=== PATIENT | female | born 1935 | race Caucasian/White ===

== ENCOUNTER 2016-12-10 17:14 | Inpatient (IN) ==
[2016-12-10] MEDS ORDERED: *HR* Heparin 5,000 UNIT/ML VIAL IVP PRN ×2 (17:37)
[2016-12-10] MEDS ORDERED: Nitroglycerin 0.4 MG TAB.SUBL SL ONE (17:37)
[2016-12-10] MEDS ORDERED: Aspirin 81 MG TAB.CHEW PO ONE (17:37)
[2016-12-10] MEDS ORDERED: *HR* Heparin 5,000 UNIT/ML VIAL IVP ONE (17:37)
[2016-12-10] MEDS ORDERED: *HR* Ticagrelor 90 MG TABLET PO ONE (17:38)
--- NOTE | 2016-12-10 17:41 | Emergency Department Note ---
Disposition Clinical Impression: Chest pain Qualifiers: Chest pain type: unspecified Qualified Code(s): R07.9 - Chest pain, unspecified ST elevation myocardial infarction (STEMI) Qualifiers: Involved coronary artery: unspecified coronary artery Qualified Code(s): I21.3 - ST elevation (STEMI) myocardial infarction of unspecified site Dyspnea Qualifiers: Dyspnea type: unspecified Qualified Code(s): R06.00 - Dyspnea, unspecified Disposition: Admitted As Inpatient Condition: Fair Time of Disposition: 18:01 Chest Pain HPI - General Chief Complaint: ED Chest Pain Stated Complaint: CP/SOB Time Seen by Provider: 12/10/16 17:31 Source: patient, family Limitations: no limitations Vital Signs Reviewed: Yes Nursing Notes Reviewed: Yes - History of Present Illness HPI Narrative: 81-year-old female history of hypertension, hyperlipidemia presents the ED with chest pain and shortness of breath. Symptoms occurred at noon after a meal. Describes as a sharp pressure and tightness. She also felt later heart was working harder and thumping. She had associated shortness of breath denies any diaphoresis nausea or vomiting. Denies a history of coronary arterial disease. Last heart catheterization in 2011 she reports. Her pattern grader supervisor is Dr. Stockton. She currently denies any pain but reports some tenderness tightness in her chest. She received 81 mg aspirin, a full dose aspirin ordered. EKG shows concerns of ST elevation in the inferior leads that appears above baseline. Repeat EKG showed similar findings, no dynamic changes. Will consult with brim buster. Severity scale (1-10): 4 - Related Data Home Medications Medication Instructions Recorded Confirmed Aspirin [Adult Low Dose Aspirin EC] 162 mg PO DAILY 06/03/15 06/03/15 Estrogens, Conjugated [Premarin] 0.3 mg PO DAILY 06/03/15 06/03/15 Ezetimibe/Simvastatin [Vytorin 1 tab PO DAILY 06/03/15 06/03/15 10-40 mg Tablet] LORazepam [Ativan] 0.5 - 1 mg PO DAILY 06/03/15 06/03/15 Levothyroxine [Synthroid] 100 mcg PO DAILY 06/03/15 06/03/15 Losartan/Hydrochlorothiazide 1 tab PO DAILY 06/03/15 06/03/15 [Hyzaar 100-25 Tablet] Metoprolol XL (24 HR) Succ [Toprol 25 mg PO DAILY 06/03/15 06/03/15 Xl] carBAMazepine [Tegretol] 100 mg PO DAILY 06/03/15 06/03/15 Previous Rx's Medication Instructions Recorded Loperamide [Imodium] 2 mg PO TIDAC #90 capsule 06/04/15 Simethicone [Gas Relief] 125 mg PO QID PRN #90 tab.chew 06/04/15 Ciprofloxacin [Cipro] 500 mg PO BID #14 tablet 06/05/15 Clindamycin [Cleocin] 150 mg PO Q6HR #28 capsule 06/05/15 Ondansetron ODT [Zofran ODT] 4 mg SL Q6HR PRN #20 tab.rapdis 06/05/15 Simethicone [Gas-X] 80 mg PO TIDWM tab.chew 06/05/15 Allergies Allergy/AdvReac Type Severity Reaction Status Date / Time latex Allergy Blister Verified 06/03/15 21:09 venom-honey bee Allergy Hives Verified 12/28/14 14:53 [bee venom (honey bee)] All systems ED: reviewed and negative except as stated. Review of Systems: As Per HPI Constitutional: Denies: fever, chills Cardiovascular: Reports: chest pain, palpitations. Denies: dyspnea on exertion Respiratory: Reports: dyspnea. Denies: cough Gastrointestinal: Denies: abdominal pain, nausea, vomiting Genitourinary: Denies: urgency, dysuria Musculoskeletal: Denies: back pain, neck pain Integumentary: Denies: rash, abrasion, lesions Neurological: Denies: headache Chest Pain PMH - Past Medical History Medical history: Reports: CHF, coronary artery disease, hyperlipidemia, hypertension, other Surgical history: Reports: hysterectomy Psychiatric history: Reports: no psych history CHIMNEY BUILDER history: Reports: no CHIMNEY BUILDER history - Social History Smoking Status: Never smoker Alcohol use: Reports: none Drug use: Reports: none Physical Exam - General Limitations: no limitations General appearance: alert, in no apparent distress - Head Head exam: atraumatic, normocephalic, normal inspection - Eye Eye exam: Present: normal appearance, PERRL, EOMI - ENT ENT exam: normal exam, normal oropharynx, mucous membranes moist - Neck Neck exam: Present: normal inspection, full ROM, trachea midline - Chest Chest inspection: Present: normal inspection, symmetric chest wall rise. Absent : tenderness, rash - Respiratory Respiratory exam: Present: normal lung sounds bilaterally. Absent: respiratory distress, wheezes - Cardiovascular Cardiovascular exam: Present: regular rate, normal rhythm, normal heart sounds. Absent: systolic murmur, diastolic murmur - Abdominal Exam Abdominal exam: Present: soft, Non-Tender, normal bowel sounds. Absent: tenderness, distention, guarding, rebound, rigidity - Extremities Exam Extremities exam: Present: normal inspection, full ROM, normal capillary refill. Absent: tenderness, pedal edema - Neurological Exam Neurological exam: Present: alert, oriented X3 - Skin Skin exam: Present: warm, dry, intact, normal color Course - Reevaluation(s) Reevaluation #1: EKG was concerning. EKG was brought evaluated by the brim buster Dr. Jacob. Recommend to workup as STEMI but hold off on calling. Workup initiated. Nitro given. She had some relief blood pressure did drop slightly. Normal saline ordered. She continues reports some tightness in the left chest wall. She is also complaining of subjective shortness of breath. She otherwise appears in no acute distress. Dr. Jacob pattern grader supervisor came to evaluate the patient down in the merge department and recommended we initiated STEMI alert due to questionable EKG findings. Patient has been sent been taken down to [facility]. - Consultations Consultation #1: Spoke with Dr. Jacob, reports questionable EKG. Recommend to repeat EKG after medications of asa, brilinta, nitro, and heparin. Time: 17:30 Consultation #2: Dr. Jacob arrives to the ED, recommends to call as STEMI as she is now experiencing symptoms. Time: 17:46 Vital Signs Temperature 98.0 F 12/10/16 17:19 Pulse Rate 80 12/10/16 17:19 Respiratory Rate 20 12/10/16 17:19 Blood Pressure 125/79 12/10/16 17:19 O2 Sat by Pulse Oximetry 93 12/10/16 17:19 Temperature 98.0 F 12/10/16 17:19 Pulse Rate 79 12/10/16 17:50 Respiratory Rate 18 12/10/16 17:58 Blood Pressure 106/88 12/10/16 17:58 O2 Sat by Pulse Oximetry 91 12/10/16 17:50 Oxygen Delivery Oxygen Delivery Nasal Cannula Chest Pain - Medical Records Medical records reviewed: Yes I reviewed the patient's medical records. - Lab Data Lab results reviewed: Yes I reviewed the patient's lab results. Result diagrams: 12/10/16 17:28 12/10/16 17:28 Lab Results 12/10/16 12/10/16 12/10/16 Range/Units 17:28 17:28 17:28 WBC 11.3 H (4.3-11.1) K/mcL RBC 4.75 (3.82-4.97) M/mcL Hgb 13.7 (11.5-15.4) g/dL Hct 41.6 (35.3-44.9) % MCV 87.6 (83.0-100.0) fL MCH 28.8 (28.0-33.3) pg MCHC 32.9 (31.6-35.5) g/dL RDW 13.7 (11.5-14.5) % Plt Count 207 (140-400) K/mcL MPV 11.1 (9.4-12.4) fL Immature Gran % 0.3 (0-4) % Seg Neutrophils % 74.9 % Lymphocytes % 14.2 % Monocytes % 8.9 % Eosinophils % 1.2 % Basophils % 0.5 % Neutrophils # 8.5 (1.6-8.9) K/mcL Lymphocytes # 1.6 (0.6-4.6) K/mcL Monocytes # 1.0 (0.0-1.3) K/mcL Eosinophils # 0.1 (0.0-0.6) K/mcL Basophils # 0.1 (0.0-0.2) K/mcL PT 10.9 (9.4-12.1) Seconds INR 1.0 APTT 29.3 (26.0-36.0) Seconds Sodium 139 (136-145) mEq/L Potassium 4.0 (3.5-4.5) mEq/L Chloride 103 (98-109) mEq/L Carbon Dioxide 29 (19-29) mEq/L BUN 20 (7-20) mg/dL Creatinine 1.05 (0.57-1.11) mg/dL Est GFR ( Amer) > 60 (> 60) Est GFR (Non-Af Amer) 51 L (> 60) BUN/Creatinine Ratio 19 (6-26) Glucose 105 H (70-99) mg/dL Calculated Osmolality 291 (280-300) Calcium 10.1 (8.6-10.8) mg/dL Troponin I (0-0.03) ng/mL 12/10/16 Range/Units 17:28 WBC (4.3-11.1) K/mcL RBC (3.82-4.97) M/mcL Hgb (11.5-15.4) g/dL Hct (35.3-44.9) % MCV (83.0-100.0) fL MCH (28.0-33.3) pg MCHC (31.6-35.5) g/dL RDW (11.5-14.5) % Plt Count (140-400) K/mcL MPV (9.4-12.4) fL Immature Gran % (0-4) % Seg Neutrophils % % Lymphocytes % % Monocytes % % Eosinophils % % Basophils % % Neutrophils # (1.6-8.9) K/mcL Lymphocytes # (0.6-4.6) K/mcL Monocytes # (0.0-1.3) K/mcL Eosinophils # (0.0-0.6) K/mcL Basophils # (0.0-0.2) K/mcL PT (9.4-12.1) Seconds INR APTT (26.0-36.0) Seconds Sodium (136-145) mEq/L Potassium (3.5-4.5) mEq/L Chloride (98-109) mEq/L Carbon Dioxide (19-29) mEq/L BUN (7-20) mg/dL Creatinine (0.57-1.11) mg/dL Est GFR ( Amer) (> 60) Est GFR (Non-Af Amer) (> 60) BUN/Creatinine Ratio (6-26) Glucose (70-99) mg/dL Calculated Osmolality (280-300) Calcium (8.6-10.8) mg/dL Troponin I 3.58 H* (0-0.03) ng/mL - EKG Data EKG attestation: Yes I reviewed and interpreted this EKG. EKG results narrative: EKG's were performed concerning for ST elevations in inferior leads as well as V3-V4. T wave inversion in lead 1 and ABL. Compared to old EKG performed 10/25 /2016 shows consistent findings of the T wave inversion however there is noticeable ST deviation in the inferior as well as septal leads. Cardiology was consulted and due to the concerning findings STEMI he was later called. Heart Score - Score History: Moderately Suspicious EKG: Non Specific repolarisation Disturbance Age: Greater than 65 Risk Factors: 1-2 risk factors
[2016-12-10] MEDS ORDERED: Heparin 25,000 UNIT/500 ML D5W 25,000 UNIT/500 ML MLS IVC SCH (17:45)
[2016-12-10] MEDS ORDERED: Verapamil 5 MG/2 ML VIAL ONE (17:47)
[2016-12-10] MEDS ORDERED: 0.9 % Sodium Chloride 1,000 ML ONE (17:47)
[2016-12-10] MEDS ORDERED: Heparin 1,000 UNITS/500 mL NS 500 ML ONE (17:47)
[2016-12-10 17:48] LABS: Basophils # 0.1 K/mcL (0.0-0.2); Basophils % 0.5 %; Eosinophils # 0.1 K/mcL (0.0-0.6); Eosinophils % 1.2 %; Hematocrit 41.6 % (35.3-44.9); Hemoglobin 13.7 g/dL (11.5-15.4); Immature Granulocytes % 0.3 % (0-4); Lymphocytes # 1.6 K/mcL (0.6-4.6); Lymphocytes % 14.2 %; Mean Corpuscular HGB Conc 32.9 g/dL (31.6-35.5); Mean Corpuscular Hemoglobin 28.8 pg (28.0-33.3); Mean Corpuscular Volume 87.6 fL (83.0-100.0); Mean Platelet Volume 11.1 fL (9.4-12.4); Monocytes % 8.9 %; Neutrophils # 8.5 K/mcL (1.6-8.9); Platelet Count 207 K/mcL (140-400); Red Blood Count 4.75 M/mcL (3.82-4.97); Red Cell Distribution Width 13.7 % (11.5-14.5); Segmented Neutrophils % 74.9 %
[2016-12-10] MEDS ORDERED: Nitroglycerin 1,000 MCG/10 ML VIAL IV ONE (17:48)
[2016-12-10] MEDS ORDERED: *HR* Heparin 10,000 UNIT/10 ML VIAL ONE (17:48)
[2016-12-10] MEDS ORDERED: 0.9 % Sodium Chloride 1,000 ML IVC ONE (17:53)
--- NOTE | 2016-12-10 17:55 | Emergency Department Note ---
START Narrative - START START: I examined this patient and my medical decision-making was reviewed with the Resident Physician. I agree with the documented findings, disposition and treatment plan as described except to the extent set forth below. Patient to ED with chest tightness. Patient is planning a tightness in the left side of her chest. No history of coronary disease catheterization done around 1999 with no interventions. Her patient started after lunch around noon. Short of breath with it as well. Also complained of palpitations. Exam shows her sitting up in bed in no acute distress. Her pain is not reproducible. Plan. Initial EKG was questionable for some inferior and septal elevations. We did repeat an EKG which appears unchanged. Was discussed with cardiology. He evaluated the patient and agrees EKG is questionable but we will proceed with STEMI and activate ear mold laboratory technician. Patient to Bra[facility] Specialist.
[2016-12-10 17:57] LABS: Prothrombin Time 10.9 Seconds (9.4-12.1)
[2016-12-10 17:59] LABS: Activated Partial Thrombo Time 29.3 Seconds (26.0-36.0)
[2016-12-10 18:02] LABS: BUN/Creatinine Ratio 19 (6-26); Blood Urea Nitrogen 20 mg/dL (7-20); Calcium 10.1 mg/dL (8.6-10.8); Carbon Dioxide 29 mEq/L (19-29); Chloride 103 mEq/L (98-109); Glucose 105 mg/dL (70-99); Osmolality,Calculated 291 (280-300); Sodium 139 mEq/L (136-145); eGFR For African Americans > 60 (> 60); eGFR For Non-African Americans 51 (> 60)
--- NOTE | 2016-12-10 18:04 | Pre-Sedation Evaluation ---
Pre-sedation evaluation - Pre-sedation checklist Date of procedure: 12/10/16 Procedure: [facility] Recent Vitals: Last Vital Signs Temp 98.0 F 12/10/16 17:19 Pulse 79 12/10/16 17:50 Resp 18 12/10/16 17:58 BP 106/88 12/10/16 17:58 Pulse Ox 91 12/10/16 17:50 H&P (including ROS) documented in medical record: Yes Previous reaction to sedatives/anesthetics: No Dietary Status: NPO after Midnight Airway Assessment: Patient can open mouth completely, TMJ function normal Dentition: No loose teeth or bridges ASA Classification *see protocol: CLASS II-Mild systemic disease, E-EMERGENCY- Add to any of the above to indicate emergent Plan of Care: Pt appropriate candidate for procedure/moderate/conscious sedation , Risks/benefits of procedure/sedation discussed w/ patient/family
--- NOTE | 2016-12-10 18:06 | Cardiology History & Physical ---
Date of Encounter: 12/10/16 Time of Encounter: 18:00 Assessment and Plan (1) Acute MS Status: Acute Ongoing symptoms with abnormal EKG concerning for lateral current of injury. Emergent LHC. A/R/B discussed with her including 1% chance of /CVA/CABG/ bleeding. She is aware and wishes to proceed. Aspirin, brilinta, heparin given. EF assessment to be completed. The assessment and plan as outlined above was discussed with the patient and/or family members who expressed understanding and agreement. All questions were answered. Qualifiers: Myocardial infarction ST status: non-ST elevation myocardial infarction Qualified Code(s): I21.4 - Non-ST elevation (NSTEMI) myocardial infarction History of Present Illness Chief complaint: chest pain HPI: Ms. Shipley is a 81 year old female with HTN but no previous cardiac history ([facility] 1999 - no intervention) presents with sudden onset severe chest pain radiating throughout chest wall associated with mild dyspnea. It was minimally improved with medical therapy in the ED with residual chest tightness. EKG was borderline abnormal for lateral MS but interpretation was complicated with LVH strain pattern. Past Med Surg Social Fam HX - Past Medical History Medical history: CHF, coronary artery disease, hyperlipidemia, hypertension, other Psychiatric history: no psych history - Past Surgical History Surgical History: hysterectomy - Social History Smoking Status: Never smoker Smokeless Tobacco Status: No Alcohol use: none Drug use: none - Family History Mother Hx Family GI Disorders: Yes Medications and Allergies Aspirin [Adult Low Dose Aspirin EC] 162 mg PO DAILY 06/03/15 [History] Estrogens, Conjugated [Premarin] 0.3 mg PO DAILY 06/03/15 [History] Ezetimibe/Simvastatin [Vytorin 10-40 mg Tablet] 1 tab PO DAILY 06/03/15 [History ] LORazepam [Ativan] 0.5 - 1 mg PO DAILY 06/03/15 [History] Levothyroxine [Synthroid] 100 mcg PO DAILY 06/03/15 [History] Losartan/Hydrochlorothiazide [Hyzaar 100-25 Tablet] 1 tab PO DAILY 06/03/15 [ History] Metoprolol XL (24 HR) Succ [Toprol Xl] 25 mg PO DAILY 06/03/15 [History] carBAMazepine [Tegretol] 100 mg PO DAILY 06/03/15 [History] Loperamide [Imodium] 2 mg PO TIDAC #90 capsule 06/04/15 [Rx] Simethicone [Gas Relief] 125 mg PO QID PRN #90 tab.chew 06/04/15 [Rx] Ciprofloxacin [Cipro] 500 mg PO BID #14 tablet 06/05/15 [Rx] Clindamycin [Cleocin] 150 mg PO Q6HR #28 capsule 06/05/15 [Rx] Ondansetron ODT [Zofran ODT] 4 mg SL Q6HR PRN #20 tab.rapdis 06/05/15 [Rx] Simethicone [Gas-X] 80 mg PO TIDWM tab.chew 06/05/15 [Rx] Allergies latex Allergy (Verified 06/03/15 21:09) Blister venom-honey bee [bee venom (honey bee)] Allergy (Verified 12/28/14 14:53) Hives All Systems Review: A 10-system review of systems was performed and is negative for pertinent findings except as documented above in the HPI. Physical Examination Vital Signs, Last 4 Hours Temp Pulse Resp BP Pulse Ox 12/10/16 17:58 18 106/88 12/10/16 17:50 79 18 94/61 91 12/10/16 17:19 98.0 F 80 20 125/79 93 General: Conversant, Other (mild distress) HEENT: Atraumatic Neck: No JVD Cardiac: Reg Rate and Rhythm Lungs: Normal Breath Sounds Neuro: Alert and responsive Abdomen: Soft Skin: No rashes noted on visualized skin Musculoskeletal: No Chest Wall Tenderness Extremities: No Edema Results 12/10/16 17:28 12/10/16 17:28 Lab Results 12/10/16 12/10/16 12/10/16 17:28 17:28 17:28 WBC 11.3 H Hgb 13.7 Hct 41.6 Plt Count 207 INR 1.0 APTT 29.3 Sodium 139 Potassium 4.0 Chloride 103 Carbon Dioxide 29 BUN 20 Creatinine 1.05 Glucose 105 H Calcium 10.1 - EKG Interpretation EKG results cardiology: sinus rhythm (LVH with strain borderline inferolateral current of injury)
[2016-12-10] MEDS ORDERED: *HR* Midazolam HCl 2 MG/2 ML VIAL ONE (18:13)
[2016-12-10] MEDS ORDERED: *HR* FentaNYL (PF) 100 MCG/2 ML VIAL ONE (18:13)
[2016-12-10] MEDS ORDERED: *HR* Atropine Sulfate 1 MG/10 ML SYRINGE ONE ×2 (18:29→22:27)
[2016-12-10] MEDS ORDERED: Ondansetron 4 MG/2 ML VIAL IVP PRN (18:36)
[2016-12-10] MEDS ORDERED: *HR* Morphine 2 MG/ML SYRINGE IVP PRN (18:36)
[2016-12-10] MEDS ORDERED: Furosemide 40 MG/4 ML VIAL ONE (18:58)
--- NOTE | 2016-12-10 19:25 | Invasive Diagnostic Lab Proc ---
Name: Kimberly Shipley Date of Study: 12/10/2016 Date: 1935 Ht: 61.0in Medical Record#: [id number] Age: 81 Wt: 130.29lb Gender: Female BSA: 1.57 Order #: [id number] BMI: 24.63 Physicians Procedure Physician: Philip Jacob MD, FACC Referring MD: Referring MD: Staff Name Position Time In Ronit Barnes RN Seed Sales Manager 06:05 PM Marlene Lindsay RN Seed Sales Manager 06:05 PM Karly Contreras RN Monitor 06:06 PM Vishal Duval RN Monitor 06:06 PM Mikaela Rai RT (R) Scrub 06:06 PM Indications Indication STEMI Procedures Performed Procedure L HRT ARTERY/VENTRICLE ANGIO Pre-Procedure Checklist Informed consent is complete signed and on chart. H&P is on chart. ID band is on and ID verified with patient. Patient NPO for procedure The procedure was described for the patient and questions were answered. Blood Pressure: 142/86 ECG is on chart. Rhythm: NSR Plan of Care Patient will tolerate the procedure without complications. Adequate level of comfort will be maintained. Hemodynamics will remain stable Patient will recover from procedure without complications. Respiratory function will be maintained. Cardiac rhythm will remain stable. Patient temperature will be maintained. Patient and/or family have verbalized understanding of the procedure. Patient Education Chief Complaint/Reason for Test: Cardiac Cath Developmental Category: Geriatric (65+ years) Developmentally Appropriate for Age: Yes Learning Barriers: None Education Needs: Procedure Education Method: Verbal Information Taught: Cardiac Cath Educational Evaluation: Able to repeat information Intravenous Access Time IV Size Location DC'd Fluid/Drip Rate Units RN 06:09 PM 20g 1 1/4" Patent On Arrival Lt Antecubital 0.9NaCl 25 ml/hr Ronit Barnes RN 06:09 PM 18g 1 1/4" Patent On Arrival Rt Antecubital Allergies bee venom (honey bee) N SULFA (sulfonamide) latex venom-honey bee Vital Signs Time BP (mmHg) HR (bpm) O2 Sat. RR (bpm) LOC 06:07 PM / % 5 = Fully awake and oriented or at pre-proc level 06:07 PM / % 4 = Oriented but drowsy 06:22 PM / % 4 = Oriented but drowsy 06:38 PM / % 4 = Oriented but drowsy 06:08 PM 142 / 86 80 96 % 22 06:13 PM 124 / 71 77 96 % 18 06:18 PM 86 / 48 68 92 % 22 06:19 PM 82 / 45 65 91 % 19 06:22 PM 73 / 39 64 89 % 21 06:23 PM 78 / 44 63 94 % 17 06:28 PM 73 / 37 56 96 % 15 06:30 PM 77 / 32 55 95 % 11 06:30 PM 72 / 44 66 96 % 18 06:32 PM 82 / 50 81 95 % 19 06:33 PM 89 / 54 88 94 % 18 06:38 PM 100 / 61 89 94 % 20 06:43 PM 107 / 66 118 95 % 19 06:48 PM 107 / 66 117 96 % 16 06:53 PM 106 / 64 114 94 % 24 06:58 PM 105 / 60 114 94 % 28 Procedural Medications Time Medication Dose Units Method Given By 06:07 PM Oxygen 2 L/min nasal cannula Ronit Barnes RN 06:15 PM Lidocaine 2% 18 ml Subcutaneous Philip Jacob MD, FACC 06:18 PM Versed 2 mg Intravenous Ronit Barnes RN 06:18 PM Fentanyl 25 mcg Intravenous Ronit Barnes RN 06:22 PM Oxygen 4 L/min nasal cannula Marlene Lindsay RN 06:25 PM Dopamine 10 mg/kg/min Intravenous Ronit Barnes RN 06:29 PM Atropine 0.5 amp Intravenous Marlene Lindsay RN 06:59 PM Lasix 20 mg Intravenous Marlene Lindsay RN ASA Classification: CLASS II- Mild systemic disease (i.e. well-controlled diabetes, hypertension, asthma, cigarette smoking) Emergent Procedure: ASA score is assumed Michelle Score Preprocedure Postprocedure Activity 2- Moves 4 extremities sustained head lift Activity 2- Moves 4 extremities sustained head lift Circulation 2- SBP +/= 20 points of pre-anesthetic level Circulation 2- SBP +/= 20 points of pre-anesthetic level Consciousness 2- Awake and alert oriented x 3 Consciousness 2- Awake and alert oriented x 3 O2 Saturation 2- Able to maintain O2 satruation of 92% on room air O2 Saturation 1- Needs O2 inhalation to maintain O2 saturation of 90% Respiratory 2- Able to deep breathe and cough well Respiratory 2- Able to deep breathe and cough well Total Score 10 Total Score 9 Contrast Agent: Isovue Diagnostic Contrast: 76 ml Total Contrast: 76 ml Fluoro Dose: 125 mGy Activated Clotting Time Time Seconds to Clot 06:42 PM 272 Procedure Log Time Note Enter By 06:04 PM 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 [email or web address] 06:05 PM Jodi responded and notified patient is ready 18:05 [email or web address] 06:05 PM Ronit Barnes RN Position: Seed Sales Manager Time in: 18:05 [email or web address] 06:06 PM Marlene Lindsay RN Position: Seed Sales Manager Time in: 18:05 [email or web address] 06:06 PM Karly Contreras RN Position: Monitor Time in: 18:06 [email or web address] 06:06 PM Vishal Duval RN Position: Monitor Time in: 18:06 [email or web address] 06:07 PM Mikaela Rai RT (R) Position: Scrub Time in: 18:06 [email or web address] 06:07 PM Time: 18:07 Oxygen on at 2 L/min per nasal cannula by Ronit Barnes RN [email or web address] 06:07 PM Time: 18:07 Patient comfortable and pain free: Yes [email or web address] 06:07 PM Time: 18:07LOC: 5 = Fully awake and oriented or at pre-proc level [email or web address] 06:08 PM CathStat 06:08 PM Vitals capture started with the following parameters, Patient=Adult, Interval=5 min, Initial Xddrobno=635 mmHg, Deflation Rate=5 mmHg, Cuff placed on Left Arm 06:08 PM HR=80 bpm, CEWH=817/86 mmhg, SpO2=96.0 %, Resp=22 B/min 06:12 PM Physician arrived 18:12 [email or web address] 06:12 PM ASA Class CLASS II- Mild systemic disease (i.e. well-controlled diabetes, hypertension, asthma, cigarette smoking) [email or web address] 06:12 PM Meet and greet completed [email or web address] 06:12 PM Sign in performed according to hospital policy. [email or web address] 06:12 PM Procedure start 18:12 [email or web address] 06:13 PM Pressure channel 1 zeroed. 06:13 PM HR=77 bpm, PPWO=693/71 mmhg, SpO2=96.0 %, Resp=18 B/min, Comment=NSR 06:14 PM Clinical Presentation: STEMI or equivalent [email or web address] 06:14 PM Time out performed according to hospital policy [email or web address] 06:15 PM Time: 18:15 18 ml Lidocaine 2% to right groin Subcutaneous Given by Philip Jacob MD, [email or web address] 06:15 PM Access obtained by percutaneous puncture. 5Fr 11cm Terumo [place] sheath placed in right Femoral artery. [id number] [email or web address] 06:16 PM 6Fr EBU 3.25 Medtronic guide catheter was used to cannulate the PCI vessel successfully. reused? No [email or web address] 06:16 PM LCA angiography performed in multiple views. [email or web address] 06:16 PM Recorded Pressure: Ao, HR=75, Condition=Condition 1 (Aorta) Ao 99/59/78 06:17 PM Guide catheter removed intact. [email or web address] 06:18 PM Time: 18:18 Versed 2 mg Intravenous Given by Ronit Barnes RN [email or web address] 06:18 PM Time: 18:18 Fentanyl 25 mcg Intravenous Given by Ronit Barnes RN [email or web address] 06:18 PM 5Fr FR 4 [email or web address] 06[facility] PM RCA angiography performed in multiple views. [email or web address] 06:18 PM HR=68 bpm, NIBP=86/48 mmhg, SpO2=92.0 %, Resp=22 B/min, Comment=NSR 06:18 PM Recorded Pressure: Ao, HR=64, Condition=Condition 1 (Aorta) Ao 56/40/47 06:19 PM NIBP STAT measurement started. 06:19 PM Coronary Dominance: right [email or web address] 06:19 PM HR=65 bpm, NIBP=82/45 mmhg, SpO2=91 %, Resp=19 B/min 06:20 PM Lab called critical trop 3.58, dr. Jacob notified [email or web address] 06:20 PM Catheter removed [email or web address] 06:20 PM 5Fr Pigtail catheter inserted over the wire [email or web address] 06:20 PM Catheter selectively placed in left ventricle [email or web address] 06:20 PM Recorded Pressure: LV, HR=66, Condition=Condition 1 (Left Ventricle) LV 140/4/19 06:20 PM Bolus angiogram of left Ventricle complete: 12 ml/sec for a total of 30 mls [email or web address] 06:21 PM Catheter removed [email or web address] 06:21 PM Recorded Pressure: LV, Ao, HR=70, Condition=Condition 1 (Left Ventricle) LV 121/10/18, (Aorta) Ao 63/32/43 06:21 PM NIBP STAT measurement started. 06:22 PM HR=64 bpm, NIBP=73/39 mmhg, SpO2=89.0 %, Resp=21 B/min, Comment=NSR 06:22 PM Time: 18:22 Oxygen on at 4 L/min per nasal cannula by Marlene Lindsay RN [email or web address] 06:22 PM Recorded Pressure: Ao, HR=68, Condition=Condition 1 (Aorta) Ao 73/37/50 06:22 PM Time: 18:07 Patient comfortable and pain free: Yes [email or web address] 06:22 PM Time: 18:07LOC: 4 = Oriented but drowsy [email or web address] 06:23 PM Bolus angiogram of right Femoral complete: 4 ml/sec for a total of 7 mls [email or web address] 06:23 PM Catheter removed [email or web address] 06:23 PM Procedure completed at 18:23 [email or web address] 06:23 PM HR=63 bpm, NIBP=78/44 mmhg, SpO2=94 %, Resp=17 B/min 06:25 PM Time: 18:25 Dopamine 10 mg/kg/min Intravenous Given by Ronit Barnes RN [email or web address] 06:26 PM Sign out completed: Radiation Dose 125 mGy Fluoro Time: 1.4 Isovue 370 - 200ml contrast 76 ml given by Philip Jacob MD, FACC. Complications: NoneCardiac Rehab Consult needed: NoConfirmed administered medications: Yes [email or web address] 06:26 PM Isovue 370 - 200ml,1 Bottle(s) used. [email or web address] 06:27 PM Post ECG Sinus Bradycardia [email or web address] 06:28 PM Post Blood Pressure 78/44 [email or web address] 06:28 PM Information taught Cardiac Cath [email or web address] 06:28 PM Education needs Procedure, Plan of Care, and Responsibilities of Patient in Care [email or web address] 06:28 PM Learning barriers :None [email or web address] 06:28 PM Education Methods Verbal [email or web address] 06:28 PM Education evaluation Able to repeat information [email or web address] 06:28 PM HR=56 bpm, NIBP=73/37 mmhg, SpO2=96.0 %, Resp=15 B/min, Comment=NSR 06:29 PM NIBP STAT measurement started. 06:30 PM HR=55 bpm, NIBP=77/32 mmhg, SpO2=95 %, Resp=11 B/min 06:30 PM Time: 18:29 Atropine 0.5 amp Intravenous Given by Marlene Lindsay RN [email or web address] 06:30 PM NIBP STAT measurement started. 06:30 PM patients blood pressure is 72/44 hr was 55, 0.5 amp atropine given per marlene benjamin. Patient still oriented and talking, states she feels drowsy [email or web address] 06:30 PM HR=66 bpm, NIBP=72/44 mmhg, SpO2=96 %, Resp=18 B/min 06:31 PM [ Start or Stop Vital ] 06:32 PM Plavix, Effient or Brilinta given given in ED [email or web address] 06:32 PM Delay to floor No [email or web address] 06:32 PM NIBP STAT measurement started. 06:32 PM Family placed in consult room. [email or web address] 06:32 PM Complications: None [email or web address] 06:32 PM Fluoro Time: 1.4 [email or web address] 06:32 PM HR=81 bpm, NIBP=82/50 mmhg, SpO2=95.0 %, Resp=19 B/min, Comment=NSR 06:32 PM Isovue 370 - 200ml contrast 76 ml given by Philip Jacob MD, [facility]. [email or web address] 06:33 PM HR=88 bpm, NIBP=89/54 mmhg, SpO2=94.0 %, Resp=18 B/min, Comment=NSR 06:34 PM at bedside, puting in a 4f venous line for dopaime treatment [email or web address] 06:35 PM Access obtained by percutaneous puncture. 4Fr 10cm Terumo [place] sheath placed in right Femoral vein. [id number] [email or web address] 06:38 PM Time: 18:22LOC: 4 = Oriented but drowsy [email or web address] 06:38 PM Time: 18:22 Patient comfortable and pain free: Yes [email or web address] 06:38 PM HR=89 bpm, YVAC=862/61 mmhg, SpO2=94.0 %, Resp=20 B/min 06:39 PM Coronary Dominance: right [email or web address] 06:40 PM Lesion found in Proximal RCA. Pre Stenosis: 30 Pre FRITZ Flow: [email or web address] 06:41 PM 1 liter fluid given [email or web address] 06:42 PM At 18:42 the ACT was 272 seconds. [email or web address] 06:42 PM NIBP STAT measurement started. 06:43 PM OU=810 bpm, QKJU=210/66 mmhg, SpO2=95 %, Resp=19 B/min 06:43 PM Right Coronary, Right Posterior Descending Arteries with Right Posterolateral and Acute Marginal branches with 30 % stenosis. If graft is supplying this area, 0 % stenosis [email or web address] 06:46 PM Sheath left in place to be pulled on floor/holding areaV+Pad [email or web address] 06:46 PM Site status No bleeding/hematoma - Rt Groin as reported by Mikaela Rai RT (R) at 18:46 [email or web address] 06:48 PM ZB=665 bpm, ZPOD=427/66 mmhg, SpO2=96 %, Resp=16 B/min 06:53 PM UN=677 bpm, GZAU=283/64 mmhg, SpO2=94 %, Resp=24 B/min 06:58 PM Time: 18:38LOC: 4 = Oriented but drowsy [email or web address] 06:58 PM patient is having some wheezes and difficulty breathing. notified at 20mg IV lasix ordered [email or web address] 06:58 PM WP=522 bpm, UPNU=644/60 mmhg, SpO2=94 %, Resp=28 B/min 06:59 PM Time: 18:59 Lasix 20 mg Intravenous Given by [facility]lene Lindsay [email or web address] 07:11 PM Report given to ICU nurse RN Pt taken to ICU Room #10. 19:10 [email or web address] 07:11 PM Delay to floor Bed availability [email or web address] 07:11 PM Patient out of room: 19:11 [email or web address] 07:12 PM Activity: 2 Circulation: 2 Consciousness: 2 O2 Saturation: 1 Respiration: 2 [email or web address] Complications Complication None None Hemodynamics Pressures Site Systolic/A Wave Diastolic/V Wave Mean AO 99 59 78 AO 56 40 47 LV 140 4 19 LV 121 10 18 AO 63 32 43 AO 73 37 50 Post Procedure Information Blood Pressure: 78/44 mmHg Rhythm: Sinus Bradycardia Post procedural instructions were given Closure Device Time Device Success/Fail 12/10/2016 6:39:00 PM Manual Compression - sheath to be pulled in icu Site Checks Time Location Status Staff Sheath In? Note 06:46 PM Rt Groin No bleeding/hematoma Mikaela Rai RT (R) Pulses Time Site Pre-Procedure Post-Procedure Note 12/10/2016 6:08:00 PM Bilateral DP 2+ 12/10/2016 6:08:00 PM Bilateral PT 1+ Updated by Vannessa Piedra, RT(R) on 12/10/2016 7:20:46 PM electronically signed on 12/10/2016 7:21:17 PM with status of Final
[2016-12-10] MEDS ORDERED: Furosemide 20 MG/2 ML VIAL IVP ONE (19:40)
[2016-12-10] MEDS ORDERED: Albuterol 2.5 MG/3 ML NEBULIZER IH PRN (19:40)
--- NOTE | 2016-12-10 21:03 | Event Note ---
Date of Encounter: 12/10/16 Time of Encounter: 09:00 - Cardiology Event Note Takotsubo cardiomyopathy EF 25%. Minimal coronary disease.
[2016-12-11 05:21] LABS: Basophils % 0.3 %; Hematocrit 37.6 % (35.3-44.9); Hemoglobin 12.4 g/dL (11.5-15.4); Immature Granulocytes % 0.3 % (0-4); Lymphocytes % 9.6 %; Mean Corpuscular Volume 88.1 fL (83.0-100.0); Mean Platelet Volume 10.9 fL (9.4-12.4); Monocytes # 0.7 K/mcL (0.0-1.3); Monocytes % 7.1 %; Neutrophils # 8.3 K/mcL (1.6-8.9); Platelet Count 176 K/mcL (140-400); Red Blood Count 4.27 M/mcL (3.82-4.97); Red Cell Distribution Width 14.1 % (11.5-14.5); Segmented Neutrophils % 82.7 %
[2016-12-11 05:33] LABS: BUN/Creatinine Ratio 21 (6-26); Blood Urea Nitrogen 19 mg/dL (7-20); Carbon Dioxide 30 mEq/L (19-29); Chloride 102 mEq/L (98-109); Glucose 114 mg/dL (70-99); Osmolality,Calculated 293 (280-300); Potassium 3.6 mEq/L (3.5-4.5); Sodium 140 mEq/L (136-145); eGFR For African Americans > 60 (> 60); eGFR For Non-African Americans 59 (> 60)
[2016-12-11] MEDS: Aspirin 81 MG TAB.CHEW PO SCH (08:41)
--- NOTE | 2016-12-11 10:29 | Invasive Diagnostic Lab ---
Name: Kimberly Shipley Date of Study: 12/10/2016 Date: 1935 Ht: 154.9 cm /61.0 in Medical Record#: [id number] Age: 81 Wt: 59.1 kg / 130.29 lb Account/Order#: [id number] Gender: Female BSA: 1.57 Order #: [id number] Fluoro Dose: 125 mGy BMI: 24.63 Procedure Physician: Philip Jacob MD, FACC Referring MD: Referring MD: Procedures Performed: LEFT HEART CATH Central line placement Indications: Acute SD Impressions: There is mild one vessel coronary artery disease. There is severe LV Dysfunction EF 30% consistent with Takotsubo cardiomyopathy Recommendations: Optimal medical therapy of patient's disease. Aggressive risk factor modification. History/Risk Factors: CP Procedure Access obtained in the right Femoral vein by percutaneous puncture and central line placed for vasopressors using modified seldinger technique. Access obtained in right femoral artery Complications: None, None Contrast: Isovue 76ml Closure Device: Manual Compression - sheath to be pulled in icu Hemodynamics: Pressures Site Systolic/ A Wave Diastolic/ V Wave End Diastolic/ Mean HR AO 99 59 78 75 AO 56 40 47 64 LV 140 4 19 66 LV 121 10 18 81 AO 63 32 43 67 AO 73 37 50 68 LV Ventriculography Ejection Method: LV Gram Ejection Fraction: 30% Wall Motion: HELMS Anterobasal Hyperkinesis Anterolateral Akinesis Apical: Akinesis Inferoapical Akinesis Inferobasal Hyperkinesis Coronary Dominance: right Lesion Findings/Interventions * Left Main Coronary Artery The LMCA is angiographically free of disease. * Left Anterior Descending The LAD is angiographically free of disease.The distal LAD is small in size. The 1st Diagonal is angiographically free of disease. * Circumflex The Circumflex is angiographically free of disease. The 1st Marginal is angiographically free of disease. * Right Coronary Artery There is a 30% stenosis in the Proximal RCA. Updated by RT Mary(R) on 12/10/2016 7:17:29 PM Philip Jacob MD, FACC electronically signed on 12/11/2016 10:24:25 AM with status of Final
--- NOTE | 2016-12-11 12:53 | Cardiology Progress Note ---
Date of Encounter: 12/11/16 Time of Encounter: 12:30 Assessment and Plan (1) Takotsubo cardiomyopathy Current Visit: Yes Status: Acute Per cardiology: -ADmitted with shortness of breath, ECG with concerning changes. -Was taken to [facility]. [facility] with 30% proximal RCA, all other vessels angiographically free of disease. LVEF 25%, appearance of takotsubo's cardiomyopathy. -Echo pending. -Troponins positive. -Patient denies chest pain. -BPs 80-100s systolic. -HRs 60-70s. -Had required short term dopamine drip, has been off since 2300. -PLan to add beta asad and cuca inhibitor when BP will tolerate. -Will continue to monitor. (2) Hypertrophic obstructive cardiomyopathy Current Visit: Yes Status: Acute Per cardiology: -Known hypertrophic obstructive cardiomyopathy. -Follows with in outpatient setting. -Has previously decline further intervention. -06/13/16 Stress echo with LVEF 65%, Severe LVOT obstruction, peak velocity 6.4 m /s, mean gradient 60mmHg. -Echo pending. -Had been on cardizem and beta saad in outpatient setting. -Unable to add medications at this point due to hypotension. -Will continue to monitor. -Echocardiogram official read pending. Discussion w patient/family: The assessment and plan as outlined above was discussed with the patient and/or family members who expressed understanding and agreement. All questions were answered. Thank you for involving us in the care of your patient. Please call with any questions. Discussed and reviewed with . Subjective Principal diagnosis: cardiomyopathy Interval history: Patient states doing well. Denies chest pain overnight. Denies shortness of breath. Right groin venous sheath still intact. Objective Vital Signs, Last 4 Hours Temp Pulse Pulse Resp BP Pulse Ox 12/11/16 11:00 98.1 F 66 66 20 95/60 90 12/11/16 10:00 65 65 20 100/66 91 12/11/16 09:00 75 75 20 119/76 92 General: Conversant, No Apparent Distress HEENT: Atraumatic, Normocephaly, Mucus Membranes Moist Neck: No JVD, Normal carotid pulses Cardiac: Reg Rate and Rhythm, Normal S1 and S2, No Murmur Lungs: Normal Breath Sounds, No Wheeze, Rales, Rhonchi Neuro: Alert and responsive, No focal deficits noted Abdomen: Soft, Non-Tender Skin: No rashes noted on visualized skin, Other (Right groin venous sheath intact. ) Musculoskeletal: No Chest Wall Tenderness Extremities: No Clubbing, No Cyanosis, No Edema, Normal Pulses Results 12/11/16 05:08 12/11/16 05:08 Lab Results Impressions Chest X-Ray 12/10/16 17:37 IMPRESSION: Cardiomegaly with bilateral pulmonary infiltrates most consistent with CHF and pulmonary edema. No significant pleural fluid. D/ / Mingo Reyes MD / Mingo Reyes MD Interpreting Provider: Mingo Reyes MD Active Medications Acetaminophen (Tylenol) 500 mg PO Q6HR PRN PRN Reason: Mild Pain Stop: 06/11/17 18:37 Albuterol Sulfate (Proventil Neb) 2.5 mg IH [id number] PRN; Protocol PRN Reason: Shortness Of Breath/Wheezing Stop: 06/11/17 19:41 Last Admin: 12/10/16 19:52 Dose: 2.5 mg Aspirin (Aspirin) 81 mg PO DAILY JULIETTE Stop: 06/12/17 09:01 Last Admin: 12/11/16 08:41 Dose: 81 mg Diphenhydramine HCl (Benadryl) 25 mg PO HS PRN PRN Reason: Insomnia Stop: 06/11/17 18:39 Heparin Sodium (Porcine) (Heparin) 5,000 unit SQ Q12HCO JULIETTE Stop: 06/12/17 18:01 Dopamine HCl/Dextrose (Dopamine Premix 400mg/250ml) 400 mg in 250 mls @ 44.225 mls/hr IVC .Q5H40M JULIETTE; 20 MCG/KG/MIN PRN Reason: Protocol Stop: 06/11/17 18:46 Last Admin: 12/11/16 05:03 Dose: Not Given Morphine Sulfate (Morphine Sulfate) 2 mg IVP Q3H PRN PRN Reason: Severe Pain (7-10) Stop: 06/11/17 18:37 Ondansetron HCl (Zofran) 4 mg IVP Q8HR PRN PRN Reason: Nausea And Vomiting Stop: 06/11/17 18:37 Last Admin: 12/10/16 20:09 Dose: 4 mg Laboratory Tests 12/10/16 12/11/16 12/11/16 17:28 05:08 05:08 Hgb 12.4 Creatinine 0.92 Troponin I 3.58 H* 12/11/16 10:22 Hgb Creatinine Troponin I 10.15 H* - Imaging and Cardiology Chest Xray: report reviewed Echo: pending Cardiac cath: report reviewed - EKG Interpretation EKG results cardiology: personally reviewed (ECG with SR, HR 79. ST elevation in inferior leads, slightly worse than baseline. T wave inversions noted in leads I, aVL.), other (Telemetry reviewed with average HR 66, sinus rhythm. PVCs , couplets, PACS, and one 4 beat run of atrial tachycardia noted.) Consult Discharge Plan - Plan Referrals: Jayna Klein, [facility] [Primary Care Provider] -
[2016-12-11] MEDS: *HR* Heparin 5,000 UNIT/ML VIAL SQ SCH (18:21)
[2016-12-12] MEDS: *HR* Heparin 5,000 UNIT/ML VIAL SQ SCH ×2 (05:40→17:57)
--- NOTE | 2016-12-12 07:55 | Electrocardiograph Report ---
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
--- NOTE | 2016-12-12 07:56 | Electrocardiograph Report ---
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
--- NOTE | 2016-12-12 07:57 | Electrocardiograph Report ---
[address] [place], [place] [address] Test Date: 2016-12-10 Pat Name: Kimberly Shipley Department: 104 Room: 10 Gender: F Rn Psych: : 1935 Requested By: Andres Zuñiga Order Number: [id number] Reading MD: Philip Jacob MD Measurements Intervals [place] Rate: 78 P: -2 [place]: 120 QRS: -38 QRSD: 107 T: 118 QT: 367 QTc: 400 Interpretive Statements SINUS RHYTHM LEFT ATRIAL ENLARGEMENT MARKED LEFT AXIS DEVIATION LEFT VENTRICULAR HYPERTROPHY AND ST-T CHANGE INFEROLATERAL ST ELEVATION CONCERNING FOR CURRENT OF INJURY Electronically Signed On 12-12-2016 7:55:20 EDT by Philip Jacob MD
--- NOTE | 2016-12-12 07:59 | Electrocardiograph Report ---
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
[2016-12-12] MEDS: Aspirin 81 MG TAB.CHEW PO SCH (08:19)
--- NOTE | 2016-12-12 11:39 | Cardiology Progress Note ---
Date of Encounter: 12/12/16 Time of Encounter: 10:30 Assessment and Plan (1) Takotsubo cardiomyopathy Current Visit: Yes Status: Acute Per cardiology: -ADmitted with shortness of breath, ECG with concerning changes. 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 -[facility] with 30% proximal RCA, all other vessels angiographically free of disease. LVEF 25%, appearance of takotsubo's cardiomyopathy. -Echo 12/11/16 with LVEF moderately reduced, mild LV dysfunction with elevated filling pressures, probably moderate to severely increased LV wall thickness although PLAX measurements are suboptimal, systolic anterior motion of mitral valve leaflets associated with LVOT flow acceleration and severe dynamic outflow obstruction (CWD: PV 5cm/s, PG 100mmHg), moderate MR, moderate TR might be underestimated, mild PH, apex, apical inferior, mid inferior, apical anterior , mid anterior, apical septal, apical lateral, mid anterior septal, and mid inferior lateral liang were hypokinetic, all other liang with normal motion. -Troponins positive. -Patient denies chest pain. -BPs 100-120s systolic. -Average HR 84. -Will add low dose beta saad. Hold for SBP less than 100. -Will attempt to add cuca/arb pending vital signs after addition of beta saad. -Will transfer out of ICU, if bed available. -Will continue to monitor. (2) Hypertrophic obstructive cardiomyopathy Current Visit: Yes Status: Acute Per cardiology: -Known hypertrophic obstructive cardiomyopathy. -Follows with in outpatient setting. -Has previously decline further intervention. -06/13/16 Stress echo with LVEF 65%, Severe LVOT obstruction, peak velocity 6.4 m /s, mean gradient 60mmHg. -Echo as above. -Had been on cardizem and beta saad in outpatient setting. -Unable to add medications at this point due to hypotension. -Will continue to monitor. -Low dose beta saad added today. Discussion w patient/family: The assessment and plan as outlined above was discussed with the patient and/or family members who expressed understanding and agreement. All questions were answered. Thank you for involving us in the care of your patient. Please call with any questions. Discussed and reviewed with . Subjective Principal diagnosis: cardiomyopathy Interval history: Patient states doing well. Denies chest pain overnight. Denies shortness of breath. Right groin access site with mild ecchymosis noted, not hematoma. Objective Vital Signs, Last 4 Hours Temp Pulse Resp BP Pulse Ox 12/12/16 10:00 76 20 106/69 93 12/12/16 09:00 76 16 127/87 93 12/12/16 08:02 97.0 F L 12/12/16 08:00 80 20 109/66 93 General: Conversant, No Apparent Distress HEENT: Atraumatic, Normocephaly, Mucus Membranes Moist Neck: No JVD, Normal carotid pulses Cardiac: Reg Rate and Rhythm, Normal S1 and S2, No Murmur Lungs: Normal Breath Sounds, No Wheeze, Rales, Rhonchi Neuro: Alert and responsive, No focal deficits noted Abdomen: Soft, Non-Tender Skin: No rashes noted on visualized skin, Other (Mild ecchymosis noted to right groin access site. ) Musculoskeletal: No Chest Wall Tenderness Extremities: No Clubbing, No Cyanosis, No Edema, Normal Pulses Results 12/11/16 05:08 12/11/16 05:08 Active Medications Acetaminophen (Tylenol) 500 mg PO Q6HR PRN PRN Reason: Mild Pain Stop: 06/11/17 18:37 Albuterol Sulfate (Proventil Neb) 2.5 mg IH [id number] PRN; Protocol PRN Reason: Shortness Of Breath/Wheezing Stop: 06/11/17 19:41 Last Admin: 12/10/16 19:52 Dose: 2.5 mg Aspirin (Aspirin) 81 mg PO DAILY [facility] Stop: 06/12/17 09:01 Last Admin: 12/12/16 08:19 Dose: 81 mg Diphenhydramine HCl (Benadryl) 25 mg PO HS PRN PRN Reason: Insomnia Stop: 06/11/17 18:39 Heparin Sodium (Porcine) (Heparin) 5,000 unit SQ Q12HCO [facility] Stop: 06/12/17 18:01 Last Admin: 12/12/16 05:40 Dose: 5,000 unit Metoprolol Succinate (Toprol Xl) 12.5 mg PO DAILY [facility] Stop: 06/13/17 11:46 Morphine Sulfate (Morphine Sulfate) 2 mg IVP Q3H PRN PRN Reason: Severe Pain (7-10) Stop: 06/11/17 18:37 Ondansetron HCl (Zofran) 4 mg IVP Q8HR PRN PRN Reason: Nausea And Vomiting Stop: 06/11/17 18:37 Last Admin: 12/10/16 20:09 Dose: 4 mg Laboratory Tests 12/10/16 12/11/16 12/11/16 17:28 05:08 05:08 Hgb 12.4 Creatinine 0.92 Troponin I 3.58 H* 12/11/16 10:22 Hgb Creatinine Troponin I 10.15 H* - Imaging and Cardiology Chest Xray: report reviewed Echo: report reviewed Cardiac cath: report reviewed - EKG Interpretation EKG results cardiology: other (Telemetry reviewed with average HR 79, sinus rhythm. PVCs and couplets noted.) Consult Discharge Plan - Plan Referrals: Jayna Klein CNP [Primary Care Provider] -
[2016-12-12] MEDS ORDERED: Metoprolol XL (24 HR) Succ 25 MG TAB.ER.24H PO SCH (11:45)
[2016-12-12] MEDS ORDERED: CarBAMazepine 100 MG TABLET PO SCH (12:00)
[2016-12-12] MEDS ORDERED: *HR* Morphine 2 MG/ML SYRINGE IVP PRN (12:36)
[2016-12-12] MEDS ORDERED: Albuterol 2.5 MG/3 ML NEBULIZER IH PRN (12:36)
[2016-12-12] MEDS ORDERED: Ondansetron 4 MG/2 ML VIAL IVP PRN (12:36)
[2016-12-13] MEDS: *HR* Heparin 5,000 UNIT/ML VIAL SQ SCH (05:39)
[2016-12-13] MEDS ORDERED: Metoprolol XL (24 HR) Succ 25 MG TAB.ER.24H PO SCH (09:00)
[2016-12-13] MEDS ORDERED: CarBAMazepine 100 MG TABLET PO SCH (09:00)
[2016-12-13] MEDS ORDERED: Aspirin 81 MG TAB.CHEW PO SCH (09:00)
[2016-12-13] MEDS ORDERED: EZETIMIBE PO SCH ×2 (09:00)
[2016-12-13] MEDS ORDERED: Multivit/Ca/Min/Fe/FA 1 TAB TABLET PO SCH ×2 (09:00)
[2016-12-13] MEDS ORDERED: SIMVASTATIN PO SCH ×2 (09:00)
[2016-12-13 15:31] VITALS: BP 116/65
--- NOTE | 2016-12-13 17:24 | Discharge Summary ---
Date of Encounter: 12/13/16 Time of Encounter: 17:00 - Discharge Diagnosis (1) Takotsubo cardiomyopathy Priority: Primary Status: Acute Comments: Admitted with takotsubo's cardiomyopathy. (2) Hypertrophic obstructive cardiomyopathy Priority: Secondary Status: Acute Comments: Known history of HOCM. - Discharge Medications Prescriptions: Losartan [Cozaar] 12.5 mg PO DAILY #30 tab Metoprolol XL (24 HR) Succ [Toprol Xl] 12.5 mg PO DAILY #30 tab Home Medications: Aspirin [Adult Low Dose Aspirin EC] 162 mg PO DAILY 06/03/15 [History] Ezetimibe/Simvastatin [Vytorin 10-40 mg Tablet] 1 tab PO DAILY 06/03/15 [History ] Levothyroxine [Synthroid] 100 mcg PO QAM 06/03/15 [History] Glucosamine Sulfate Dipot Chlr [Glucosamine] 1,000 mg PO DAILY 12/10/16 [History ] L. Acidophilus/Pectin, Potter [Acidophilus Probiotic Capsule] 1 each PO DAILY [History] Multivitamin [Multi-Day Vitamins] 1 each PO DAILY 12/10/16 [History] Ubidecarenone [Co Q-10] 100 mg PO DAILY 12/10/16 [History] carBAMazepine [CarBAMazepine] 100 mg PO DAILY 12/10/16 [History] Losartan [Cozaar] 12.5 mg PO DAILY #30 tab 12/13/16 [Rx] Metoprolol XL (24 HR) Succ [Toprol Xl] 12.5 mg PO DAILY #30 tab 12/13/16 [Rx] Allergies/Adverse Reactions: 3 Allergy/AdvReac Type Severity Reaction Status Date / Time latex Allergy Blister Verified 06/03/15 21:09 venom-honey bee Allergy Hives Verified 12/28/14 14:53 [bee venom (honey bee)] Procedures/tests Complete & Pending: Procedures Performed prior 72 hours Category Date Time Status ECG 12 lead ECG [ECG] Routine Y 12/10/16 18:36 Completed ECG 12 lead ECG [ECG] Routine Y 12/11/16 07:00 Completed ECG 12 lead ECG [ECG] Stat Y 12/10/16 18:36 Completed EV echocardiogram Routine Y 12/11/16 07:30 Completed Date of admission: 12/10/16 18:10 Primary care physician: Jayna Klein CNP Consults: 12/10/16 18:36 Consult to Cardiac Rehabilitation-Phase1 [CONS] Routine Comment: Reason for Consult: AMI Call Completed: Yes Consult to Nurse Navigator [CONS] Routine Comment: Discharging clinician: Anne Morales Anticipated date of discharge: 12/13/16 - Patient Status Disposition: Home, Self-Care Condition: Fair Overall status at discharge: patient is progressing back to baseline - Discharge Instructions Follow Up With: Kj Franks CNP [Advanced Practice Nurse] - (CARDIOLOGY WILL CALL PATIENT AT HOME WITH AN APPOINTMENT) Jayna Klein CNP [Primary Care Provider] - 12/20/16 2:00 pm Additional Instructions: RISK FACTORS: STOP SMOKING: If you smoke, STOP. Smoking or tobacco use significantly increases your risk of heart disease because nicotine causes the arteries to narrow or constrict. It also causes fats to stick to the artery. Your chances of having a heart attack are greatly increased if you continue to smoke. For more information, call the education line for smoking cessation 5-915-ULCUQJK EAT A LOW FAT/CHOLESTEROL/SODIUM DIET: This diet may help reduce your chances of having a heart attack. LIFTING: Avoid lifting anything more than 10 pounds for 5-7 days Prior to straining, laughing, sneezing and/or coughing, apply manual pressure directly over insertion site. ACTIVITY: You may walk or climb stairs as tolerated You can resume sexual activity as tolerated In general, you are encouraged to engage in a minimum of 30 minutes or more of moderate intensity physical activity, such as brisk walking, daily or at least 3 -4 times weekly BATHING Do not submerge the site into water (bath tub, hot tub, swimming pool) for 1 week. This can be a source for infection into the blood stream. You may shower after 24 hours SITE CARE: After 24 hours, you may remove the dressing and leave the site open to air. Keep the site clean and dry. Clean gently and pat dry. You can expect bruising and tenderness that gradually resolve within a week or two. Return to work as instructed per your physician Resume driving as instructed per physician Keep all scheduled follow up appointments Resume medications as instructed IMPORTANT: If prescribed a Platelet Aggregation Inhibitor such as, Plavix, Brilinta or Effient: Duration of therapy is minimum one year These medications are often used in combination with Aspirin in prevention of future heart attacks Never discontinue unless consult with your Sales Forecast Analyst STROKE (CVA) Risk factors for a stroke are: Age, cigarette smoking, diabetes, excessive alcohol consumption, family history, high blood pressure, overweight, physical inactivity, prior stroke, heart attack, diagnosis of carotid artery stenosis or other artery disease. Warning signs: Sudden numbness or weakness of the face, arm or leg; especially on one side of the body, sudden confusion, trouble speaking or understanding, sudden trouble seeing in one or both eyes, sudden trouble walking, dizziness, loss of balance or coordination, sudden severe headache with no cause. Call 911 or go to the Emergency Room. CONGESTIVE HEART FAILURE: If you have been diagnosed with Congestive Heart Failure (CHF) and your symptoms return, make an appointment with your physician Weigh yourself daily. Notify your physician if you have a weight gain of two or more pounds in one day or five or more pounds in one week. If you experience any difficulty breathing, please call 911 BLEEDING: Although the risk of bleeding is minimal, it can happen. If you have any bleeding from the site, apply firm pressure above the puncture site for 10-15 minutes. If the bleeding does not stop, continue manual pressure and call 911 Contact your physician if: You develop a fever greater than 101 degrees Fahrenheit Your site becomes reddened or has any drainage You have an increase in pain or burning at the site or if a large knot forms at the site. If you experience chest pain, shortness of breath, dizziness, or extreme tiredness, stop the activity and rest. Please notify your physicians office if you experience any of these symptoms and they are not relieved by rest please call 911! - Diet and Activity Activity: increase activity as tolerated Diet: low fat, low cholesterol, low salt diet - Hospital Course Hospital course: Ms. 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 Patient required temporary BP support with dopamine. Patient was started on low dose beta saad and low dose ARB. Patient's HR and BP have remained stable today. Right groin access site without hematoma or ecchymosis. Right groin site management education given to patient. Patient will follow up with primary recreation assistant in 1 week. Follow up set. Patient is being prepped for discharge today in stable condition. - Time Spent with Patient Total time spent providing and/or coordinating discharge services: Less than 30 minutes Physical Examination Vital Signs, Last 4 Hours Temp Pulse Resp BP Pulse Ox 12/13/16 15:28 98.1 F 74 22 116/65 98 General: Conversant, No Apparent Distress HEENT: Atraumatic, Normocephaly, Mucus Membranes Moist Neck: No JVD, Normal carotid pulses Cardiac: Reg Rate and Rhythm, Normal S1 and S2, No Murmur Lungs: Normal Breath Sounds, No Wheeze, Rales, Rhonchi Neuro: Alert and responsive, No focal deficits noted Abdomen: Soft, Non-Tender Skin: No rashes noted on visualized skin Musculoskeletal: No Chest Wall Tenderness, Other (Right groin without hematoma or ecchymosis. ) Extremities: No Clubbing, No Cyanosis, No Edema, Normal Pulses
== END 2016-12-13 18:52 | disposition home or self-care (01) | DRG 281 ==
LOC: EMEROO 17:14 → ICNU 18:01 → EMEROO 18:01 → ICNU 18:10 → 2NNU 12-12 14:54
PROVIDERS: ADMIT Emergency Medicine; ATTEND Emergency Medicine

== ENCOUNTER 2018-02-10 20:00 | Observation (INO) ==
[2018-02-10] MEDS ORDERED: Acetaminophen 325 MG TABLET PO PRN (23:16)
[2018-02-10] MEDS ORDERED: CarBAMazepine 100 MG TABLET PO PRN (23:16)
--- NOTE | 2018-02-10 23:41 | Internal Med History&Physical ---
<Jia Miramontes - Last Filed: 02/11/18 02:30> Date of Encounter: 02/11/18 Internal Medicine - H&P: Meds Aspirin [Adult Low Dose Aspirin EC] 81 mg PO HS 06/03/15 [History] Ezetimibe/Simvastatin [Vytorin 10-40 mg Tablet] 1 tab PO HS 06/03/15 [History] Levothyroxine [Synthroid] 100 mcg PO QAM 06/03/15 [History] L. Acidophilus/Pectin, Sturgeon [Acidophilus Probiotic Capsule] 1 each PO QAM [History] Multivitamin [Multi-Day Vitamins] 1 each PO DAILY 12/10/16 [History] Ubidecarenone [Co Q-10] 100 mg PO HS 12/10/16 [History] carBAMazepine [CarBAMazepine] 100 mg PO DAILY PRN 12/10/16 [History] Acetaminophen [Tylenol] 650 mg PO Q6HR PRN 02/10/18 [History] Estrogens, Conjugated [Premarin] 0.3 mg PO DAILY 02/10/18 [History] Losartan/Hydrochlorothiazide [Losartan-Hctz 100-25 mg Tab] 1 each PO HS [History] Metoprolol [Lopressor] 25 mg PO HS 02/10/18 [History] Metoprolol [Lopressor] 50 mg PO QAM 02/10/18 [History] 3 Allergy/AdvReac Type Severity Reaction Status Date / Time latex Allergy Blister Verified 06/03/15 21:09 Sulfa (Sulfonamide Allergy Hives Verified 02/10/18 22:54 Antibiotics) venom-honey bee Allergy Hives Verified 12/28/14 14:53 [bee venom (honey bee)] All Systems PM: A 10-system review of systems was performed and is negative for pertinent findings except as documented above in the HPI. - Constitutional Vitals: Temp Pulse Resp BP Pulse Ox 98.6 F 57 20 147/77 96 02/10/18 22:55 02/10/18 22:55 02/10/18 22:55 02/10/18 22:55 02/10/18 22:55 - Time Spent With Patient Total time spent is greater than 50% in coordination of care (as documented) at patient's floor/unit and/or counseling patient: - Attending Attestation Kimberly Shipley is an 82 year old woman with a history of hypertension and hyperlipidemia who was seen here in 2017 for suspected ACS but ended up being diagnosed w/ Takotsubo cardiomyopathy and HOCM. She presents now on transfer from [facility] where she was taken to by her daughter because she was sleepier and fatigued than usual over the past week and thought perhaps she may be dehydrated. At [facility] her clinical exam and basic labs were unremarkable however a troponin was done for no specific reason and identified to be minimally elevated which gave them concern and was transferred here. On my assessment of the EKG done there, she has signs of LVH. Here she is ambulatory and well appearing. She denies any complaints of shortness of breath or chest pain. She says she feels completely fine and she occasionally needs to sleep more than usual but she is not dehydrated and has been eating well and therefore does not know what the concern is. Her physical exam is grossly benign and appears younger than her age. Will obtain another EKG here now and keep her on telemetry. Will benefit from a f/u TTE as the last was about a year ago. Will like to see trend of troponins; first lab here is 0.07 which is lower than what she presented w/ at [facility]. Do not suspect ACS at this time. Old records reviewed and seen to have longstanding high level elevations; unclear if this is associated w/ her anatomic anomalies. Continue ASA, BB, statin and antihypertensives. May benefit from continued cardiology f/u given her prior history. TSH seen abnormal. Obtain free T3/T4 and adjust meds. BING SANTOS. <Hemant Ryan - Last Filed: 02/11/18 03:34> Date of Encounter: 02/11/18 Time of Encounter: 11:00 Internal Medicine - H&P: HPI Chief complaint: Fatigue Admitted From: Emergency Dept Plans for Post Hospital Care: Home History of present illness: Ms. Shipley is a 82 year old female with history of hypothyroidism, hypertrophic cardiomyopathy and Takotsubos cardiomyopathy about 1 year ago who presented initially to [facility] ED due to 1 week history of fatigue. She said that over the past week she has been feeling very fatigued, and tired in general. She says that the feeling is typically was issues. Sleepy, and she has been sleeping for approximately 5-6 hours a day on top of her normal flow night sleep. She says that this is atypical for her, and that she usually has a lot of energy. In the past when this is happening, she said that she has been dehydrated and has required IV hydration in order to feel better. She had told her daughter about this, and decided to come to the hospital for some IV hydration before going home to feel better. In addition to those symptoms she did mention minimal unsteadiness on her feet and some chills. Denies any fevers , night sweats, chest pains, shortness of breath, nausea, vomiting, diarrhea. She reports no other acute symptoms at all. She has had no sick contacts. In the ED a [place], the patient had labs demonstrated sodium 141, potassium 3.9 , chloride 105, bicarbonate 31, BUNs and 18, serum creatinine 0.85, glucose 79. CBC demonstrated WBC 8.0, hemoglobin 15.4, platelet 188. Her initial troponin was noted to be 0.37 despite an EKG which did not demonstrate any acute ischemic changes. She was also found to have a TSH 0.06. At that time, the patient was transferred to [facility] for concern for NSTEMI. Past Med Surg Social Fam HX - Past Medical History Medical history: CHF, coronary artery disease, hyperlipidemia, hypertension, thyroid disease, other Additional medical history: Trigeminal neuralgia, hypertrophic cardiomyopathy, Takotsubo syndrome, [place] X2, Psychiatric history: no psych history - Past Surgical History Surgical History: hysterectomy, orthopedic, other Additional surgical history: bilateral shoulder sx - Social History Smoking Status: Never smoker Smokeless Tobacco Status: No Alcohol use: none Drug use: none - Family History Mother Hx Family GI Disorders: Yes All Systems PM: A 10-system review of systems was performed and is negative for pertinent findings except as documented above in the HPI. Review of systems: Constitutional: Denies fevers, weight loss. Admits to generalized fatigue, tiredness, some chills. Head/Neck: Denies LANGLEY, neck stiffness EENT: Denies vision changes/blurriness, rhinorrhea, congestion, sore throat CVS: Denies chest pain, palpitations, SALTER, orthopnea, edema, PND above baseline Pulm: Denies SOB, cough, sputum, hemoptysis, wheezing above baseline GI: Denies abdominal pain, nausea, vomiting, diarrhea, constipation, melena, hematemasis : Denies dysuria, increased frequency, urgency, hematuria Heme: Denies ease of bleeding or bruising MSK: Denies joint pain, limited ROM Skin: Denies rashes, ulcers, color changes Neuro: Denies LANGLEY, paresthesias, focal deficits, ataxia - Constitutional Vitals: Temp Pulse Resp BP Pulse Ox 98.6 F 57 20 147/77 96 02/10/18 22:55 02/10/18 22:55 02/10/18 22:55 02/10/18 22:55 02/10/18 22:55 Exam: Gen: Vitals noted. No acute distress. Very pleasant and well-appearing woman. Appears younger than stated age. HEENT: Normocephalic, atraumatic Neck: Supple. No adenopathy. Cardiac: RRR, 2/6 holosystolic murmur that is crescendo decrescendo and heard all listening post, +S1/S2 Pulmonary: CTA bilaterally, no wheezes, rales or rhonchi, equal chest expansion Abdomen: soft, nontender, no guarding Back: Nontender throughout. MSK: ROM intact, no joint swelling noted Extremities: no BLE edema, nontender calf, no cyanosis or clubbing Neuro: moves all extremities, no focal deficits. A&Ox3 Psych: Appropriate mood and behavior - Assessment and plan (1) Elevated troponin I level Current Visit: Yes Status: Acute Assessment and plan: Elevated troponin on arrival, however trending down. 0.378 -> 0.07 Patient has extensive cardiac history including Hypertrophic cardiomyopathy and takosubo's 1 year ago Most recent Echo 02/12 shows LVEF 70% with mild-mod multivalvular disease Overall she is not having chest pains, shortness of breath or any cardiac symptoms Uncertain if cardiac anatomic anomalies play role in elevation We will get echocardiogram for follow-up Consult to cardiology (2) Fatigue Current Visit: Yes Status: Acute Assessment and plan: Fatigue, unknown etiology Possibly Secondary to cardiac concern We will workup as above Qualifiers: Fatigue type: unspecified Qualified Code(s): R53.83 - Other fatigue (3) Abnormal thyroid stimulating hormone (TSH) level Current Visit: Yes Status: Acute Assessment and plan: Patient had TSH at [facility] which was 0.06 This is markedly low, she is currently taking 100mcg Synthroid daily We will hold synthroid, Check TSH and Free T3/T4 (4) Hypertrophic cardiomyopathy Current Visit: No Status: Chronic Assessment and plan: Hx of HOCM Repeat Echo (5) DVT prophylaxis Current Visit: Yes Status: Acute Assessment and plan: SQ Heparin - Time Spent With Patient Total time spent is greater than 50% in coordination of care (as documented) at patient's floor/unit and/or counseling patient:
[2018-02-11 05:29] LABS: Basophils % 0.7 %; Eosinophils # 0.2 K/mcL (0.0-0.6); Eosinophils % 3.1 %; Hematocrit 41.3 % (35.3-44.9); Hemoglobin 13.2 g/dL (11.5-15.4); Lymphocytes # 1.7 K/mcL (0.6-4.6); Lymphocytes % 28.8 %; Mean Corpuscular Volume 87.7 fL (83.0-100.0); Mean Platelet Volume 11.5 fL (9.4-12.4); Monocytes # 0.5 K/mcL (0.0-1.3); Monocytes % 9.2 %; Neutrophils # 3.3 K/mcL (1.6-8.9); Platelet Count 160 K/mcL (140-400); Red Blood Count 4.71 M/mcL (3.82-4.97); Red Cell Distribution Width 14.1 % (11.5-14.5); Segmented Neutrophils % 58.2 %
[2018-02-11 05:34] LABS: Prothrombin Time 11.7 Seconds (9.4-12.1)
[2018-02-11] MEDS: *HR* Heparin 5,000 UNIT/ML VIAL SQ SCH ×2 (05:41→17:21)
[2018-02-11 05:48] LABS: BUN/Creatinine Ratio 21 (6-26); Blood Urea Nitrogen 18 mg/dL (8-23); Calcium 9.3 mg/dL (8.6-10.3); Carbon Dioxide 26 mEq/L (23-29); Chloride 108 mEq/L (98-107); Glucose 84 mg/dL (70-105); Osmolality,Calculated 295 (280-300); Potassium 4.1 mEq/L (3.5-5.1); Sodium 142 mEq/L (136-145); eGFR For Non-African Americans > 60 (> 60)
[2018-02-11 05:59] LABS: Troponin I 0.07 ng/mL (< 0.04)
[2018-02-11] MEDS ORDERED: *HR* Heparin 5,000 UNIT/ML VIAL SQ SCH (06:00)
[2018-02-11 06:02] LABS: Thyroid Stimulating Hormone 0.058 mcIU/mL (0.340-5.600)
[2018-02-11 06:04] LABS: Triiodothyronine (T3) Free 3.14 pg/mL (2.50-3.90)
--- NOTE | 2018-02-11 08:08 | Internal Med Progress Note ---
<Dea Flores - Last Filed: 02/11/18 16:59> Hospitalist Progress Note - Encounter Date of Encounter: 02/11/18 Time of Encounter: 07:50 - Subjective Interval History: Patient seen and examined. No acute events overnight. Patient is sitting comfortably in bed putting her shoes on. Patient states she feels fine and wants to go home. States she feels like shes trapped in here. Shes anxious that she has not gotten her home meds. Patient denies any complaints. Admits chronic cough. Denies fatigue. Denies chest pain, shortness of breath. Denies abdominal pain. Denies swelling. Denies nausea/vomiting. - Exam Vitals: Temp Pulse Resp BP Pulse Ox 98 F 63 20 155/73 95 02/11/18 06:42 02/11/18 06:42 02/11/18 06:42 02/11/18 06:42 02/11/18 06:42 Exam: General: Normal body habitus. Alert and oriented x3. No acute distress. Head: atraumatic, normocephalic. Eye: pupils equal and round. Sclera anicteric. EOMI. Mouth: oral mucosa moist. Normal oropharynx. Neck: supple. Trachea midline. Lungs: CTAB. No rhonchi, rales, or wheezing. No respiratory distress. No accessory muscle use. Cardiovascular: Normal S1 & S2. Systolic murmur. No rubs or gallops. No JVD. Pulse regular. Abdomen: Normal bowel sounds. Nontender. No guarding, no rigidity, no rebound. Extremities: No joint swelling, edema, or clubbing. Nontender. Skin: warm, dry, and intact. - Assessment and Plan (1) Elevated troponin I level Current Visit: Yes Status: Acute Assessment and Plan: Elevated troponin on arrival. Trending down: 0.378 0.07 0.07. Patient has extensive cardiac history including hypertrophic cardiomyopathy and Takatsubo's cardiomyopathy 1 year ago. History of longstanding elevated troponins, baseline ~0.04. Recent emotional stress the day before admission. Most recent Echo 01/2017 showed LVEF 70% with severe asymmetric LV septal hypertrophy, and mild-mod multivalvular disease. Patient denies chest pains, shortness of breath or any cardiac symptoms. Uncertain if cardiac anatomic anomalies play role in elevation. Check echo. Continue medical management with ASA, BB, statin, anti-HTN. Cardiology consulted. (2) Fatigue Current Visit: Yes Status: Acute Assessment and Plan: Unknown etiology. Possibly secondary to cardiac concern vs subclinical hyperthyroid. Resolved. Workup and management as above. (3) Abnormal thyroid stimulating hormone (TSH) level Current Visit: Yes Status: Acute Assessment and Plan: On admission, TSH low at 0.058. Free T4/T3 are WNL. Indicative of subclinical hyperthyroid. Home dose of 88mcg synthroid. Dose recently changed 2 weeks ago. Continue 88mcg synthroid. Patient has appt to followup with PCP at end of month. (4) Hypertrophic cardiomyopathy Current Visit: No Status: Chronic Assessment and Plan: Hx of HOCM Echo 01/2017 showed severe asymmetric septal hypertrophy. Hydration with IVF NS 100ml/hr, per Cardiology. (5) DVT prophylaxis Current Visit: Yes Status: Acute Assessment and Plan: SQ Heparin - Time Spent with Patient Total time spent is greater than 50% in coordination of care (as documented) at patient's floor/unit and/or counseling patient: Internal Medicine: Result - Labs CBC & Chem 7: 02/11/18 05:07 02/11/18 05:07 Labs: Short CBC 02/11/18 Range/Units 05:07 WBC 5.7 (4.3-11.1) K/mcL Hgb 13.2 (11.5-15.4) g/dL Hct 41.3 (35.3-44.9) % Plt Count 160 (140-400) K/mcL Neutrophils # 3.3 (1.6-8.9) K/mcL BMP 02/11/18 05:07 Sodium 142 Potassium 4.1 Chloride 108 H Carbon Dioxide 26 BUN 18 Creatinine 0.86 Glucose 84 Calcium 9.3 Cardiac Enzymes 02/10/18 02/11/18 Range/Units 23:37 05:07 Troponin I 0.07 H* 0.07 H* (< 0.04) ng/mL - ABG Interpretation ABG results: PT/INR, D-dimer PT 11.7 Seconds (9.4-12.1) 02/11/18 05:07 Consult Discharge Plan - Plan Referrals: Jayna Klein, [facility] [Primary Care Provider] - <Sylvia Gale - Last Filed: 02/11/18 17:19> Hospitalist Progress Note - Encounter Date of Encounter: 02/11/18 - Exam Vitals: Temp Pulse Resp BP Pulse Ox 97.8 F 57 18 161/78 97 02/11/18 11:57 02/11/18 11:57 02/11/18 11:57 02/11/18 11:57 02/11/18 11:57 - Assessment and Plan (1) Fatigue Current Visit: Yes Status: Acute (2) Elevated troponin I level Current Visit: Yes Status: Acute (3) Hypertrophic cardiomyopathy Current Visit: No Status: Chronic (4) DVT prophylaxis Current Visit: Yes Status: Acute (5) Abnormal thyroid stimulating hormone (TSH) level Current Visit: Yes Status: Acute - Time Spent with Patient Total time spent is greater than 50% in coordination of care (as documented) at patient's floor/unit and/or counseling patient: Internal Medicine: Result - Labs CBC & Chem 7: 02/11/18 05:07 02/11/18 05:07 Labs: Short CBC 02/11/18 Range/Units 05:07 WBC 5.7 (4.3-11.1) K/mcL Hgb 13.2 (11.5-15.4) g/dL Hct 41.3 (35.3-44.9) % Plt Count 160 (140-400) K/mcL Neutrophils # 3.3 (1.6-8.9) K/mcL BMP 02/11/18 05:07 Sodium 142 Potassium 4.1 Chloride 108 H Carbon Dioxide 26 BUN 18 Creatinine 0.86 Glucose 84 Calcium 9.3 Cardiac Enzymes 02/10/18 02/11/18 Range/Units 23:37 05:07 Troponin I 0.07 H* 0.07 H* (< 0.04) ng/mL - ABG Interpretation ABG results: PT/INR, D-dimer PT 11.7 Seconds (9.4-12.1) 02/11/18 05:07 - Attending Attestation I examined this patient and my medical decision-making was reviewed with the Resident Physician Dr Flores. I agree with the documented findings, disposition and treatment plan as described except to the extent set forth below/addl details below. Ms Shipley presented to ED at request of her daughter due tiredness throughout the week with pt admitting to increased number of naps this week. Found to have trop elevation to 0.37s which is higher than her baseline trop elevation and she was transferred for further cardiac work up for concern for NSTEMI. Awake, alert and pleasant. She denies any chest pain, pressure, palpitations, sob, ang, orthopnea or le edema. She notes she has been active throughout each day and then feeling tired so takes a nap, then feels fine afterwards. No cough , cold, abd pain, nausea, emesis, change in diet, rashes, wounds, dysuria, increased urinary urgency or frequency. She is hoping to be discharged today as she doesn't feel it was necessary for her to be admitted. Denies generalized weakness or difficulty in completing adls or ambulating. Declines need for pt/ot eval. she had decrease in synthroid dose outpt months ago per pt. no hot flashes, palpitations, increased bms, heat intolerance. gen- alert, awake,appears stated age eyes- pupils equal round , no conjunctival pallor cv- reg rate and rhythm, normal s1,s2, no murmurs appreciated, no le edema, no jvd lungs- ctabl, no wheezing, rhonchi or crackles, normal resp effort on ra abd- soft, non tender, non distended, + bs neuro- AAOx3, CN grossly intact, no focal deficits Trop elevation to 0.373 and now down to 0.07s H&P notes concern for NSTEMI, that diagnosis is changed at this time to Troponin Elevation -cards was consulted on admit given she follows with cards for Takotsubo CM and HOCM -as per cards eval no concern for ACS/NSTEMI given trop stable, ekg without changes from prior (TWIs present), no st elevation or depressions -rec to obtain echo which is pending and keep hydrated, with ivfs to be ordered -if echo is unchanged she will likely be able to dc to home wothout further cardiac work up Fatigue of unclear etiology, ACS ruled out, no signs of infectious process or metabolic process, no anemia -she does have subclinical hyperthyroidism, hx hypothyroidism on synthroid but she has no other s/s of hyeprthyroidism so unlikely to be cause of fatigue -has had increased stress lately which may be contributing -given neg work up, if cards work up is negative, will rec for her to fu with pcp for further eval and work up outpt. Non obstructive CAD, Hx Takotsubo CM , HOCM -cont asa, bb, statin HTN, stable, cont to monitor on home meds, will adjust meds as needed, fu with pcp and cards outpt for further monitoring Hypothyroidism on synthroid with lab work suggestive of Sublcinical Hyperthyroidism -tsh 0.05, free t4 wnl -given her heart history will decrease home dose to 75 mcg and she requires outpt fu in 2-4 week for repeat testing which she is agreeable to <Dea Flores - Last Filed: 02/11/18 16:59> (2) Fatigue Qualifiers: Fatigue type: unspecified Qualified Code(s): R53.83 - Other fatigue <Sylvia Gale - Last Filed: 02/11/18 17:19> (1) Fatigue Qualifiers: Qualified Code(s): R53.83 - Other fatigue
--- NOTE | 2018-02-11 10:58 | Cardiology Consult Note ---
<Arturo Mercedes - Last Filed: 02/11/18 10:54> Date of Encounter: 02/11/18 Time of Encounter: 10:45 Assessment and Plan (1) Elevated troponin I level Current Visit: Yes Status: Acute Elevated troponin of unclear significance, 0.07, 0.07. Not diagnostic for ACS. No concerning cardiac symptoms. Her only complaint is fatigue. Check TTE. Further recommendations to follow. (2) Hypertrophic obstructive cardiomyopathy Current Visit: No Status: Acute PMH of HOCM. Last TTE 01/2017 showed EF 70%, severe asymmetrical hypertrophy, ERIN with mild increase in LVOT. The LA was severely dilated. Mild to moderate MR, moderate to severe TR, mild to moderate PAH. Recommend keeping well hydrated. Concern for dehydration on admit. No significant lab abnormalities to suggest and patient states she is eating and drinking normally. Continue medical management. Re-peat TTE pending. Discussion w patient/family: The assessment and plan as outlined above was discussed with the patient and/or family members who expressed understanding and agreement. All questions were answered. Thank you for involving us in the care of your patient. Please call with any questions. History of Present Illness Consult date: 02/11/18 Requesting physician: Jia Miramontes Consult reason: Elevated troponin Chief complaint: Feeling tired for one week. History of present illness: Ms. Shipley is a 82 year old female with past medical history of mild non- obstructive CAD in [facility] in 2016, takotsubo CMP , HOCM, that resolved, PAH, HTN, and HLD who presented to [facility] with the c/o feeling unusually tired. Her initial work-up in the ED was benign except for mild troponin elevation so she was transferred to [place]. Cardiology consulted to evaluate. She denies chest pain or SOB. Denies palpitations, dizziness, or syncope. Denies orthopnea, PND, or edema. Prior cardiac testing: TTE 01/29/17- EF 70%, severe asymmetrical hypertrophy, ERIN with mild increase in LVOT. The LA was severely dilated. Mild to moderate MR, moderate to severe TR, mild to moderate PAH. [facility] 12/10/16- EF 30% takotsubo CMP, Mild one vessel CAD, 30% stenosis pRCA. Past Med Surg Social Fam HX - Past Medical History Medical history: CHF, coronary artery disease, hyperlipidemia, hypertension, thyroid disease, other Additional medical history: Trigeminal neuralgia, hypertrophic cardiomyopathy, Takotsubo syndrome, [place] X2, Psychiatric history: no psych history - Past Surgical History Surgical History: hysterectomy, orthopedic, other Additional surgical history: bilateral shoulder sx - Social History Smoking Status: Never smoker Smokeless Tobacco Status: No Alcohol use: none Drug use: none - Family History Mother Hx Family GI Disorders: Yes Medications and Allergies Aspirin [Adult Low Dose Aspirin EC] 81 mg PO HS 06/03/15 [History] Ezetimibe/Simvastatin [Vytorin 10-40 mg Tablet] 1 tab PO HS 06/03/15 [History] L. Acidophilus/Pectin, Dukes [Acidophilus Probiotic Capsule] 1 each PO QAM [History] Multivitamin [Multi-Day Vitamins] 1 each PO DAILY 12/10/16 [History] Ubidecarenone [Co Q-10] 100 mg PO HS 12/10/16 [History] Acetaminophen [Tylenol] 650 mg PO Q6HR PRN 02/10/18 [History] Estrogens, Conjugated [Premarin] 0.3 mg PO DAILY 02/10/18 [History] Levothyroxine [Synthroid] 88 mcg PO QAM 02/11/18 [History] Losartan [Cozaar] 25 mg PO DAILY 02/11/18 [History] Metoprolol Succinate [Toprol Xl] 25 mg PO QPM 02/11/18 [History] Metoprolol Succinate [Toprol Xl] 50 mg PO QAM 02/11/18 [History] carBAMazepine [CarBAMazepine] 100 mg PO DAILY PRN 02/11/18 [History] 3 Allergy/AdvReac Type Severity Reaction Status Date / Time latex Allergy Blister Verified 06/03/15 21:09 Sulfa (Sulfonamide Allergy Hives Verified 02/10/18 22:54 Antibiotics) venom-honey bee Allergy Hives Verified 12/28/14 14:53 [bee venom (honey bee)] All Systems Review: The remainder of the systems were reviewed and are negative Physical Examination Vital Signs Temp Pulse Resp BP Pulse Ox 02/11/18 06:42 98 F 63 20 155/73 95 02/11/18 04:34 98.1 F 58 16 128/68 96 02/10/18 22:55 98.6 F 57 20 147/77 96 Intake and Output 02/10/18 02/11/18 02/11/18 23:59 07:59 15:59 Other: Weight 58.6 kg 58.5 kg Patient Weight 02/11/18 23:59 Weight 58.5 kg General: Conversant, No Apparent Distress HEENT: Atraumatic, Normocephaly, Mucus Membranes Moist Neck: No JVD, Normal carotid pulses Cardiac: Reg Rate and Rhythm, Normal S1 and S2, No Murmur Lungs: Normal Breath Sounds, No Wheeze, Rales, Rhonchi Neuro: Alert and responsive, No focal deficits noted Abdomen: Soft, Non-Tender Skin: No rashes noted on visualized skin Musculoskeletal: No Chest Wall Tenderness Extremities: No Clubbing, No Cyanosis, No Edema, Normal Pulses Results 02/11/18 05:07 02/11/18 05:07 Lab Results 02/10/18 02/11/18 02/11/18 23:37 05:07 05:07 WBC 5.7 Hgb 13.2 Hct 41.3 Plt Count 160 INR 1.0 Sodium Potassium Chloride Carbon Dioxide BUN Creatinine Glucose Calcium Troponin I 0.07 H* B-Natriuretic Peptide TSH 02/11/18 02/11/18 02/11/18 05:07 05:07 05:07 WBC Hgb Hct Plt Count INR Sodium 142 Potassium 4.1 Chloride 108 H Carbon Dioxide 26 BUN 18 Creatinine 0.86 Glucose 84 Calcium 9.3 Troponin I 0.07 H* B-Natriuretic Peptide 366 H TSH 0.058 L - Imaging and Cardiology Echo: report reviewed - EKG Interpretation EKG results cardiology: personally reviewed (SR, LVH) Consult Discharge Plan - Plan Referrals: Jayna Klein, ENERGY ADMINISTRATOR [Primary Care Provider] - <Basilia Couch - Last Filed: 02/11/18 14:04> Date of Encounter: 02/11/18 - Attending Attestation Patient was seen and evaluated independently by me. Findings, assessment and plan were discussed at length with patient, questions answered. Agree with nurse practitioner's documentation. Addition as follows, 82 yoCF ho hypothyroidism with recently decreased dose of synthroid due to iatrogenic hyperthyroidism TSH 0.01s, HOCM (BRIANNA 1.8cm)with mild LVOT gradient, stress CMP 2016 with recovered LVEF w non-obstructive CAD o LHC, mod-severe TR, RVSP 49. P/w marked fatigue worse 1 wk with sig emotional strss recently. Consulted for trop 0.07 flat. No CV symptoms. TSH 0.05, has appt to recheck TSH this month outpatient. VSS, no JVC, CTA, RR, 3/6 SM LSB, no G/R, NT, no LE edema ECG no new findings, SR, LAD, LVH w strain A: mild elevation of troponin, likely not ACS but type 2 Ho stress CMP, recent emotional stress, r/o recurrence HOCM, mild LVOT gradient iatrogenic hyperthyroidism, onging med adjustment P: if TTE similar to prior, no further inpatient workup f/u OP for synthroid adjustment Basilia Couch MD, PhD Assessment and Plan Discussion w patient/family: The assessment and plan as outlined above was discussed with the patient and/or family members who expressed understanding and agreement. All questions were answered. Thank you for involving us in the care of your patient. Please call with any questions. History of Present Illness History of present illness: Ms. Shipley is a 82 year old female All Systems Review: The remainder of the systems were reviewed and are negative Physical Examination Vital Signs, Last 4 Hours Temp Pulse Resp BP Pulse Ox 02/11/18 11:57 97.8 F 57 18 161/78 97 Results 02/11/18 05:07 02/11/18 05:07 Lab Results 02/10/18 02/11/18 02/11/18 23:37 05:07 05:07 WBC 5.7 Hgb 13.2 Hct 41.3 Plt Count 160 INR 1.0 Sodium Potassium Chloride Carbon Dioxide BUN Creatinine Glucose Calcium Troponin I 0.07 H* B-Natriuretic Peptide TSH 02/11/18 02/11/18 02/11/18 05:07 05:07 05:07 WBC Hgb Hct Plt Count INR Sodium 142 Potassium 4.1 Chloride 108 H Carbon Dioxide 26 BUN 18 Creatinine 0.86 Glucose 84 Calcium 9.3 Troponin I 0.07 H* B-Natriuretic Peptide 366 H TSH 0.058 L
[2018-02-11] MEDS: 0.9 % Sodium Chloride 1,000 ML IVC SCH (17:17)
--- NOTE | 2018-02-11 17:19 | Discharge Summary ---
<Dea Flores - Last Filed: 02/12/18 10:17> Date of Encounter: 02/12/18 Time of Encounter: 08:00 - Discharge Diagnosis (1) Elevated troponin I level Priority: Primary Status: Acute (2) Fatigue Priority: Primary Status: Acute Qualifiers: Fatigue type: unspecified Qualified Code(s): R53.83 - Other fatigue (3) Hypertrophic cardiomyopathy Priority: Primary Status: Chronic (4) DVT prophylaxis Priority: Secondary Status: Acute (5) Abnormal thyroid stimulating hormone (TSH) level Priority: Primary Status: Acute Hospital course: Ms. Shipley is an 82 year old woman with medical history of HOCM, Takotsubo cardiomyopathy, hypertension, hyperlipidemia, CHF, hypothyroid, ME x2, and trigeminal neuralgia. She presents now on transfer from [facility] where she was taken to by her daughter because she was sleepier and fatigued than usual over the past week and thought perhaps she may be dehydrated. At [facility] her clinical exam and basic labs were unremarkable however a troponin was done for no specific reason and identified to be minimally elevated at 0.37 which gave them concern and was transferred here. Patient had no cardiac symptoms. Patient reports recent emotional stress the day before admission. Vitals were stable. CBC was unremarkable. BMP was unremarkable. BNP was elevated at 366. TSH was low at 0.058. Free T4/T3 were WNL. Troponin was 0.7. EKG showed no new findings. Echo done in 01/2017 showed LVEF 70% with HOCM and mild-mod multivalvular disease. Had left heart cath in 11/2016 that showed 30% stenosis of RCA. Cardiology was consulted and determined troponin elevation was of uncertain significance and not diagnostic for ACS. Cardiology recommended IV fluids for HOCM due to concern for dehydration. And recommended echo. Echo showed similar findings as previous echo. No further inpatient management was recommended. Patient continued to deny any cardiac symptoms. Denies fatigue. Patient is back to baseline and determined ready for discharge. - Time Spent with Patient Total time spent providing and/or coordinating discharge services: Greater than 30 minutes (42 minutes) - Discharge Medications Home Medications: Aspirin [Adult Low Dose Aspirin EC] 81 mg PO HS 06/03/15 [History] Ezetimibe/Simvastatin [Vytorin 10-40 mg Tablet] 1 tab PO HS 06/03/15 [History] L. Acidophilus/Pectin, [place] [Acidophilus Probiotic Capsule] 1 each PO QAM [History] Multivitamin [Multi-Day Vitamins] 1 each PO DAILY 12/10/16 [History] Ubidecarenone [Co Q-10] 100 mg PO HS 12/10/16 [History] Acetaminophen [Tylenol] 650 mg PO Q6HR PRN 02/10/18 [History] Estrogens, Conjugated [Premarin] 0.3 mg PO DAILY 02/10/18 [History] Levothyroxine [Synthroid] 88 mcg PO QAM 02/11/18 [History] Losartan [Cozaar] 25 mg PO DAILY 02/11/18 [History] Metoprolol Succinate [Toprol Xl] 25 mg PO QPM 02/11/18 [History] Metoprolol Succinate [Toprol Xl] 50 mg PO QAM 02/11/18 [History] carBAMazepine [CarBAMazepine] 100 mg PO DAILY PRN 02/11/18 [History] Allergies/Adverse Reactions: 3 Allergy/AdvReac Type Severity Reaction Status Date / Time latex Allergy Blister Verified 06/03/15 21:09 Sulfa (Sulfonamide Allergy Hives Verified 02/10/18 22:54 Antibiotics) venom-honey bee Allergy Hives Verified 12/28/14 14:53 [bee venom (honey bee)] Date of admission: 02/10/18 22:07 Primary care physician: Jayna Klein CNP Consults: 02/11/18 03:14 Consult to Cardiology [CONS] Routine Comment: Consulting Provider: Cardiology Kat Reason for Consult: Follow up. HOCM, prior Takotsubo. Now elevated trop, weakness Call Completed: No Discharging clinician: Dea Flores Anticipated date of discharge: 02/12/18 - Constitutional Vitals: Temp Pulse Resp BP Pulse Ox 98.1 F 59 18 126/68 98 02/11/18 15:49 02/11/18 15:49 02/11/18 15:49 02/11/18 15:49 02/11/18 15:49 Exam: General: Normal body habitus. Alert and oriented x3. No acute distress. Head: atraumatic, normocephalic. Eye: pupils equal and round. Sclera anicteric. EOMI. Mouth: oral mucosa moist. Normal oropharynx. Neck: supple. Trachea midline. Lungs: CTAB. No rhonchi, rales, or wheezing. No respiratory distress. No accessory muscle use. Cardiovascular: Normal S1 & S2. Systolic murmur. No rubs or gallops. No JVD. Pulse regular. Abdomen: Normal bowel sounds. Nontender. No guarding, no rigidity, no rebound. Extremities: No joint swelling, edema, or clubbing. Nontender. Skin: warm, dry, and intact. - Patient Status Disposition: Home, Self-Care Condition: Good - Discharge Instructions Follow Up With: Jayna Klein CNP [Primary Care Provider] - 02/19/18 1:00 pm (Please follow up as schedule...) Basilia Couch MD [Non-Partnered Physician] - 03/03/18 9:00 am (Please follow up as schedule...) - Diet and Activity Activity: increase activity as tolerated Diet: low fat, low cholesterol, low salt diet <Sylvia Gale - Last Filed: 02/12/18 11:59> - NOTES TO OUTPATIENT PROVIDER Notes to Outpatient Provider: She was admitted with fatigue x1 week and troponin elevated from baseline. Trop decreased without intervention and cardiology was consulted. No tele events, echo unchanged from prior, cardiology does nto believe this was a cardiac event. TSH low but T4 wnl and family updated team to recent decrease in synthroid dose. Given her cardiac hx rec for repeat thyroid funciton tests within two weeks. No cause of increased tiredness identified this admission, further outpt eval and monitoring recommended. Outpt cardiology fu with established compliance vice president recommended Orders not resulted at time of discharge: Pending orders 02/10/18 23:57 EKG [ECG 12 lead ECG] [ECG] Stat Date of Encounter: 02/12/18 - Discharge Diagnosis (1) Fatigue Status: Acute Qualifiers: Fatigue type: unspecified Qualified Code(s): R53.83 - Other fatigue (2) Elevated troponin I level Status: Acute (3) Hypertrophic cardiomyopathy Status: Chronic (4) DVT prophylaxis Status: Acute (5) Abnormal thyroid stimulating hormone (TSH) level Status: Acute Hospital course: Ms. Shipley is a 82 year old female - Time Spent with Patient Total time spent providing and/or coordinating discharge services: Greater than 30 minutes Date of admission: 02/10/18 22:07 Primary care physician: Jayna Klein CNP Consults: 02/11/18 03:14 Consult to Cardiology [CONS] Routine Comment: Consulting Provider: Cardiology Kat Reason for Consult: Follow up. HOCM, prior Takotsubo. Now elevated trop, weakness Call Completed: No - Constitutional Vitals: Temp Pulse Resp BP Pulse Ox 98.1 F 56 18 105/60 95 02/12/18 10:30 02/12/18 10:30 02/12/18 10:30 02/12/18 10:30 02/12/18 10:30 - Patient Status Overall status at discharge: patient is back to baseline - Attending Attestation Pt dc summary was started in draft form 02/11/18. She remined in hospital overnight for echocardiogram to be completed. DC summary completed and signed the day of discharge. I examined this patient and my medical decision-making was reviewed with the Resident Physician Dr Flores. I agree with the documented findings, disposition and treatment plan as described except to the extent set forth below/addl details below. Ms Shipley presented to ED at request of her daughter due tiredness throughout the week with pt admitting to increased number of naps this week. Found to have trop elevation to 0.37s which is higher than her baseline trop elevation and she was transferred for further cardiac work up for concern for NSTEMI. Her cardiac work up was negative and cardiology did not feel tiredness was cardiac related. No infectious or metabolic etiologies identified. Pt feels at baseline and will dc to home with outpt cards and pcp follow up. Awake, alert and pleasant. She denies any chest pain, pressure, palpitations, sob, fatgiue, presyncope. She states she remains at her baseline and is hoping for dc to home after review of echo this morning. She denies having any needs at home. Pt daughter clarified yesterday that synthroid dose was changed about two weeks ago, not months ago as the pt reported and therefore she is continued on her new home synthroid dose with outpt fu on dc as d/w pt daughter. gen- alert, awake,appears stated age eyes- pupils equal round , no conjunctival pallor cv- reg rate and rhythm, normal s1,s2, no murmurs appreciated, no le edema, no jvd lungs- ctabl, no wheezing, rhonchi or crackles, normal resp effort on ra abd- soft, non tender, non distended, + bs neuro- AAOx3 Trop elevation to 0.373 and now down to 0.07s H&P notes concern for NSTEMI, that diagnosis is changed to Troponin Elevation -cards was consulted on admit given she follows with cards for Takotsubo CM and HOCM -as per cards eval no concern for ACS/NSTEMI given trop stable, ekg without changes from prior (TWIs present), no st elevation or depressions -echo 02/11/18 evening without significant change from prior -d/w cards and no further work up required, will fu in clinic outpt, cont home meds Fatigue of unclear etiology, ACS ruled out, no signs of infectious process or metabolic process, no anemia, possibly related to outpt change in synthroid dose in last couple weeks -she does have subclinical hyperthyroidism, hx hypothyroidism on synthroid but she has no other s/s of hyeprthyroidism, family confirmed decrease in synthroid dose 2 weeks ago outpt -has had increased stress lately which may be contributing as well - rec for her to fu with pcp for further eval and monitoring outpt Non obstructive CAD, Hx Takotsubo CM , HOCM -cont asa, bb, statin, arb on dc HTN, fu with pcp and cards outpt for further monitoring, cont home meds on dc Hypothyroidism on synthroid with lab work suggestive of Sublcinical Hyperthyroidism -tsh 0.05, free t4 wnl -dose decrease to 88mcg by pcp in last two weeks per family, cont this dose on dc and fu for repeat TFTs on 2 weeks
[2018-02-11] MEDS ORDERED: Aspirin Enteric Coated 81 MG Tablet PO SCH (21:00)
[2018-02-11] MEDS ORDERED: Metoprolol XL (24 HR) Succ 25 MG TAB.ER.24H PO SCH (21:00)
[2018-02-11] MEDS ORDERED: Losartan/HCTZ 50-12.5 TABLET PO SCH (21:00)
[2018-02-11] MEDS ORDERED: (Ezetimibe/Simvastatin [Vytorin 10-40 Mg Tablet] 1 TA PO SCH (21:00)
[2018-02-12] MEDS: 0.9 % Sodium Chloride 1,000 ML IVC SCH (05:33)
[2018-02-12] MEDS: *HR* Heparin 5,000 UNIT/ML VIAL SQ SCH (05:34)
[2018-02-12] MEDS ORDERED: Metoprolol XL (24 HR) Succ 50 MG TAB.ER.24H PO SCH (09:00)
[2018-02-12 10:35] VITALS: BP 105/60
--- NOTE | 2018-02-12 13:09 | Cardiology Progress Note ---
Date of Encounter: 02/12/18 Time of Encounter: 13:06 Assessment and Plan (1) Elevated troponin I level Current Visit: Yes Status: Acute Elevated troponin of unclear significance, 0.07, 0.07. Not diagnostic for ACS. Appears to have chronic elevation. No concerning cardiac symptoms. Her only complaint is fatigue. EKG -SR with LVH, TTE -EF 65%. Asymmetric hypertrophy of the basal septum. Systolic anterior motion of the mitral valve leaflets.Mild LVOT obstruction. Mean gradient 10 mmHg. Mild mitral regurgitation, mild tricuspid regurgitation, mild PAH. No further cardiac testing at this time. Cardiology will sign off. Call with questions. (2) Hypertrophic obstructive cardiomyopathy Current Visit: No Status: Acute PMH of HOCM. See TTE above. Recommend keeping well hydrated. Concern for dehydration on admit. Received IV fluid and feeling better. Continue medical management. Encouraged to increase oral water intake at home. Discussion w patient/family: The assessment and plan as outlined above was discussed with the patient and/or family members who expressed understanding and agreement. All questions were answered. Thank you for involving us in the care of your patient. Please call with any questions. Subjective Principal diagnosis: fatigue Interval history: Ms. Shipley says she is feeling great today. Objective Vital Signs, Last 4 Hours Temp Pulse Resp BP Pulse Ox 02/12/18 10:30 98.1 F 56 18 105/60 95 General: Conversant, No Apparent Distress HEENT: Atraumatic, Normocephaly, Mucus Membranes Moist Neck: No JVD, Normal carotid pulses Cardiac: Reg Rate and Rhythm, Normal S1 and S2, Other (2/6 systolic murmur) Lungs: Normal Breath Sounds, No Wheeze, Rales, Rhonchi Neuro: Alert and responsive, No focal deficits noted Abdomen: Soft, Non-Tender Skin: No rashes noted on visualized skin Musculoskeletal: No Chest Wall Tenderness Extremities: No Clubbing, No Cyanosis, No Edema, Normal Pulses Results 02/11/18 05:07 02/11/18 05:07 - Imaging and Cardiology Echo: report reviewed Consult Discharge Plan - Plan Referrals: Jayna Klein CNP [Primary Care Provider] - 02/19/18 1:00 pm (Please follow up as schedule...) Basilia Couch MD [Non-Partnered Physician] - 03/03/18 9:00 am (Please follow up as schedule...)
--- NOTE | 2018-02-13 16:08 | Electrocardiograph Report ---
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
== END 2018-02-12 13:00 | disposition home or self-care (01) ==
LOC: 2ANU → SUATTDRO 22:07
PROVIDERS: ADMIT Internal Medicine; ATTEND Internal Medicine

== ENCOUNTER 2021-03-16 17:49 | Inpatient (IN) ==
[2021-03-16] MEDS ORDERED: Ipratropium/Albuterol Neb 3 ML IH ONE (18:37)
[2021-03-16 19:04] LABS: Basophils % 0.5 %; Eosinophils % 0.7 %; Hematocrit 45.4 % (35.3-44.9); Hemoglobin 14.8 g/dL (11.5-15.4); Immature Granulocytes % 0.2 % (0-4); Lymphocytes # 1.2 K/mcL (0.6-4.6); Lymphocytes % 20.8 %; Mean Corpuscular HGB Conc 32.6 g/dL (31.6-35.5); Mean Corpuscular Hemoglobin 27.7 pg (28.0-33.3); Mean Platelet Volume 11.4 fL (9.4-12.4); Monocytes # 0.8 K/mcL (0.0-1.3); Monocytes % 13.6 %; Neutrophils # 3.6 K/mcL (1.6-8.9); Platelet Count 273 K/mcL (140-400); Red Blood Count 5.34 M/mcL (3.82-4.97); Red Cell Distribution Width 14.8 % (11.5-14.5); Segmented Neutrophils % 64.2 %; White Blood Count 5.7 K/mcL (4.3-11.1)
[2021-03-16 19:20] LABS: Albumin 3.7 g/dL (3.5-5.7); Albumin/Globulin Ratio 1.3 (1.1-2.2); Bilirubin,Total 0.9 mg/dL (0.3-1.0); Calcium 9.4 mg/dL (8.6-10.3); Globulin 2.9 g/dL (2.4-3.5); Potassium 3.4 mEq/L (3.5-5.1); Total Protein 6.6 g/dL (6.4-8.9)
[2021-03-16 19:28] LABS: Troponin I 0.1 ng/mL (< 0.04)
[2021-03-16 19:42] LABS: Influenza A PCR Negative (Negative); Influenza B PCR Negative (Negative); Resp. Syncytial Virus PCR Negative (Negative)
[2021-03-16 19:47] LABS: SARS-CoV-2 by PCR (In House) Positive (Negative)
[2021-03-16 21:06] LABS: Bacteria,Urine Few per hpf (None-Few); Bilirubin,Urine Small (Negative); Blood,Urine Trace (Negative); Clarity,Urine Turbid (Clear); Color,Urine Yellow (Yellow); Glucose,Urine (UA) Normal (Normal); Hyaline Casts,Urine Many per lpf (None Seen); Ketones,Urine Trace mg/dL (Negative); Leukocyte Esterase,Urine Trace (Negative); Mucus,Urine Many per lpf (None-Few); Nitrite,Urine Negative (Negative); PH,Urine 5.5 pH Units (5.0-8.0); Protein,Urine 50 mg/dL (Neg-Trace); RBC,Urine 0-3 per hpf (0-3); Specific Gravity,Urine 1.023 (1.010-1.025); Squamous Epithelial Cell,Urine Moderate per hpf (None-Few); Urobilinogen,Urine Normal (Normal); WBC,Urine 15-30 per hpf (0-3)
[2021-03-16] MEDS ORDERED: Budesonide Neb 0.5 MG/2 ML IH SCH (22:00)
[2021-03-16] MEDS ORDERED: Acetaminophen 325 MG TABLET PO PRN (22:44)
[2021-03-16] MEDS ORDERED: Ondansetron 4 MG/2 ML VIAL IVP PRN (22:44)
[2021-03-16] MEDS ORDERED: Naloxone 0.4 MG/ML INJ IVP PRN (22:44)
[2021-03-16] MEDS ORDERED: 0.9 % Sodium Chloride 1,000 ML IVC SCH (22:45)
[2021-03-16] MEDS ORDERED: Ipratropium/Albuterol Neb 3 ML IH PRN (22:48)
[2021-03-17] MEDS: cefTRIAXone 1,000 MG in 0.9 % Sodium Chloride Mini Bag 100 ML IVPB SCH ×2 (00:07→08:50)
[2021-03-17] MEDS: Azithromycin 500 MG in 0.9 % Sodium Chloride 250 ML IVPB SCH ×2 (01:30→08:49)
[2021-03-17 02:38] LABS: Basophils % 0.4 %; Eosinophils # 0.1 K/mcL (0.0-0.6); Eosinophils % 0.8 %; Hematocrit 41.3 % (35.3-44.9); Hemoglobin 13.7 g/dL (11.5-15.4); Immature Granulocytes % 0.3 % (0-4); Lymphocytes # 1.2 K/mcL (0.6-4.6); Lymphocytes % 16.2 %; Mean Corpuscular HGB Conc 33.2 g/dL (31.6-35.5); Mean Corpuscular Hemoglobin 28.1 pg (28.0-33.3); Mean Corpuscular Volume 84.8 fL (83.0-100.0); Monocytes # 0.9 K/mcL (0.0-1.3); Monocytes % 12.7 %; Neutrophils # 5.1 K/mcL (1.6-8.9); Platelet Count 255 K/mcL (140-400); Red Blood Count 4.87 M/mcL (3.82-4.97); Red Cell Distribution Width 14.6 % (11.5-14.5); Segmented Neutrophils % 69.6 %; White Blood Count 7.4 K/mcL (4.3-11.1)
[2021-03-17 02:47] LABS: INR 1.2; Prothrombin Time 13.4 Seconds (9.4-12.1)
[2021-03-17 02:57] LABS: Calcium 9.2 mg/dL (8.6-10.3); Chol/HDL Ratio 2.1 (0-4.9); Magnesium 1.8 mg/dL (1.6-2.6); Potassium 3.7 mEq/L (3.5-5.1); Troponin I 0.09 ng/mL (< 0.04)
[2021-03-17 03:18] LABS: Thyroid Stimulating Hormone 12.528 mcIU/mL (0.340-5.600)
[2021-03-17] MEDS: *HR* Heparin 5,000 UNIT/ML VIAL SQ SCH ×3 (05:50→20:45)
[2021-03-17 06:00] LABS: Troponin I 0.1 ng/mL (< 0.04)
[2021-03-17] MEDS: Metoprolol XL (24 HR) Succ 50 MG TAB.ER.24H PO SCH (08:49)
[2021-03-17] MEDS: Cholecalciferol (D-3) 1,000 UNIT (25MCG) TABLET PO SCH ×2 (08:49→20:44)
[2021-03-17] MEDS: Budesonide/Formoterol 160/4.5 1 PUFF INH IH SCH ×2 (10:18→20:01)
[2021-03-17] MEDS: Ipratropium 1 PUFF INHALER IH SCH ×4 (15:46→23:45)
[2021-03-17] MEDS ORDERED: Metoprolol XL (24 HR) Succ 25 MG TAB.ER.24H PO SCH (18:00)
[2021-03-17] MEDS ORDERED: Aspirin Enteric Coated 81 MG Tablet PO SCH (21:00)
[2021-03-17] MEDS ORDERED: VYTORIN PO SCH (21:00)
[2021-03-18] MEDS: Ipratropium 1 PUFF INHALER IH SCH ×3 (03:45→11:09)
[2021-03-18] MEDS: *HR* Heparin 5,000 UNIT/ML VIAL SQ SCH (05:16)
[2021-03-18 06:59] LABS: Basophils % 0.8 %; Eosinophils # 0.1 K/mcL (0.0-0.6); Eosinophils % 2.3 %; Hematocrit 39.1 % (35.3-44.9); Immature Granulocytes % 0.2 % (0-4); Lymphocytes # 1.6 K/mcL (0.6-4.6); Lymphocytes % 30.2 %; Mean Corpuscular HGB Conc 33.2 g/dL (31.6-35.5); Mean Corpuscular Hemoglobin 28.7 pg (28.0-33.3); Mean Corpuscular Volume 86.3 fL (83.0-100.0); Mean Platelet Volume 11.8 fL (9.4-12.4); Monocytes # 0.8 K/mcL (0.0-1.3); Monocytes % 14.5 %; Neutrophils # 2.8 K/mcL (1.6-8.9); Platelet Count 238 K/mcL (140-400); Red Blood Count 4.53 M/mcL (3.82-4.97); Red Cell Distribution Width 14.8 % (11.5-14.5); White Blood Count 5.3 K/mcL (4.3-11.1)
[2021-03-18 07:11] LABS: BUN/Creatinine Ratio 26 (6-26); Blood Urea Nitrogen 26 mg/dL (8-23); Calcium 9.3 mg/dL (8.6-10.3); Carbon Dioxide 29 mEq/L (23-29); Chloride 106 mEq/L (98-107); Glucose 81 mg/dL (70-105); Osmolality,Calculated 296 (280-300); Potassium 3.9 mEq/L (3.5-5.1); Sodium 141 mEq/L (136-145); eGFR For African Americans > 60 (> 60); eGFR For Non-African Americans 52 (> 60)
[2021-03-18 07:17] VITALS: BP 139/79; PULSE 62; TEMP 97.9; O2SAT 96
[2021-03-18] MEDS: Budesonide/Formoterol 160/4.5 1 PUFF INH IH SCH (07:21)
[2021-03-18] MEDS: Loratadine 10 MG TABLET PO SCH ×2 (08:25→08:32)
[2021-03-18] MEDS: Cholecalciferol (D-3) 1,000 UNIT (25MCG) TABLET PO SCH (08:25)
[2021-03-18] MEDS: cefTRIAXone 1,000 MG in 0.9 % Sodium Chloride Mini Bag 100 ML IVPB SCH (08:26)
[2021-03-18] MEDS: Metoprolol XL (24 HR) Succ 50 MG TAB.ER.24H PO SCH (08:30)
[2021-03-18] MEDS ORDERED: (Ezetimibe [Zetia] 10 MG Tablet) PO SCH (09:00)
[2021-03-18] MEDS: Azithromycin 500 MG in 0.9 % Sodium Chloride 250 ML IVPB SCH (09:00)
== END 2021-03-18 11:39 | disposition home or self-care (01) | DRG 177 ==
LOC: 3NENU 17:49 → EMEROOARM 17:49 → SUATTDRO 22:55 → 3NENU 23:13
PROVIDERS: ADMIT Internal Medicine; ATTEND Family Medicine